=== PATIENT | female | born 1950 | race Caucasian/White ===

== ENCOUNTER 2018-01-19 12:37 | Emergency (ER) | payer MEDICARE ==
[~2018-01-19] VITALS: Ht 170.2 cm; Wt 63.5 kg
[~2018-01-19 12:37] MED LIST: ALBU90I INH; ALBU90OI INH; ASPI325 PO; ATOR10; ATOR40TA; ATOR40TA PO; CALCAVITDA; CALGLU500 PO; CEPH500 PO; CLIN150 PO; CLOP75 PO; CRUTCH3 USE; CYAN1000I; CYAN1000I IM; DIAZ5 PO; DIVA500EC; DIVA500EC PO; DIVA500ER; DULO60; EFFEXOR-XR; FLUSAL1005 INH; FURO40; FURO40 PO; GABA600 PO; GABAPENTIN; HORMONE CREAM; HYDACE5; IBUHYD; LEVFLO500 PO; LEVSOD50; LEVSOD50 PO; LORA.5; LORA1 PO; METH10; METH10 PO; METO10 PO; MULVITA; NABU500; NAPR250; ONDA8ODT MM; OXYACE5C; OXYC20L PO; OXYGEN USE; PANT40 PO; PRED20 PO; PRIM50; PRIM50 PO; PROM25; PROM25 PO; TIOT18 INH; VENL150ER PO
[2018-01-19 13:43] LABS: BASOPHILS ABSOLUTE AUTO 0.04 K/mm3 (0.00-0.23); BASOPHILS PERCENT AUTO 1 % (0-2); EOSINOPHILS ABSOLUTE AUTO 0.09 K/mm3 (0.00-0.68); EOSINOPHILS PERCENT AUTO 2 % (0-6); Hematocrit 40.3 % (33.0-51.0); Hemoglobin 13.2 g/dL (11.5-16.0); IMMATURE GRAN ABSOLUTE AUTO 0.01 K/mm3 (0.00-0.10); IMMATURE GRAN PERCENT AUTO 0 % (0-1); LYMPHOCYTES ABSOLUTE AUTO 2.43 K/mm3 (0.84-5.20); LYMPHOCYTES PERCENT AUTO 41 % (21-46); MONOCYTES ABSOLUTE AUTO 0.47 K/mm3 (0.16-1.47); MONOCYTES PERCENT AUTO 8 % (4-13); Mean Corpuscular HGB 29.9 pg (26.0-34.0); Mean Corpuscular HGB Conc 32.8 g/dL (31.5-36.5); Mean Corpuscular Volume 91 fL (80-100); Mean Platelet Volume 9.8 fL (9.1-12.4); NEUTROPHILS ABSOLUTE AUTO 2.96 K/mm3 (1.96-9.15); NEUTROPHILS PERCENT AUTO 49 % (41-73); Platelet Count 227 K/mm3 (150-400); RDW Coefficient Variation 12.8 % (11.7-14.2); RDW Standard Deviation 42.5 fL (35.1-46.3); Red Blood Cell Count 4.41 M/mm3 (3.80-5.20)
[2018-01-19 13:55] LABS: Alanine Aminotransfer (ALT/SGP 26 U/L (12-78); Albumin, Blood 3.3 g/dL (3.4-5.0); Albumin/Globulin Ratio 1.1 (0.8-1.8); Alk Phos 85 U/L (50-136); Anion Gap 7 mmol/L (6-16); Aspartate Aminotrans (AST/SGOT 25 U/L (12-37); Bilirubin, Total 0.3 mg/dL (0.1-1.0); Blood Urea Nitrogen 13 mg/dL (8-24); Bun/Creatinine Ratio 23.4 (12.0-20.0); CO2, Blood 28 mmol/L (21-32); Calcium, Blood 8.7 mg/dL (8.5-10.1); Chloride, Blood 104 mmol/L (98-108); Creatinine, Blood 0.56 mg/dL (0.40-1.00); Globulin, Blood 3.1 g/dL (2.2-4.0); Glomerular Filtration Rate >60 (60-); Glucose, Blood 110 mg/dL (70-99); Potassium, Blood 3.6 mmol/L (3.5-5.5); Sodium, Blood 139 mmol/L (136-145); Total Protein, Blood 6.4 g/dL (6.4-8.2)
== END 2018-01-19 14:32 | disposition home or self-care (01) ==
LOC: ER 12:37
PROVIDERS: Emergency Medicine
DX: S61.011A Laceration without foreign body of right thumb without damage to nail, initial encounter (principal); S10.93XA Contusion of unspecified part of neck, initial encounter; S00.93XA Contusion of unspecified part of head, initial encounter; G47.419 Narcolepsy without cataplexy; I10 Essential (primary) hypertension; F17.200 Nicotine dependence, unspecified, uncomplicated; Z88.2 Allergy status to sulfonamides; Z79.899 Other long term (current) drug therapy; Z79.82 Long term (current) use of aspirin; Z86.73 Personal history of transient ischemic attack (TIA), and cerebral infarction without residual deficits; Z79.01 Long term (current) use of anticoagulants; W01.0XXA Fall on same level from slipping, tripping and stumbling without subsequent striking against object, initial encounter
CPT/HCPCS: 12002; 70450; 72125; 80053; 85025; 99284

== ENCOUNTER → 2019-04-11 | Outpatient (CLI) | payer MEDICARE | END | disposition home or self-care (01) | LOC: LAB SHORT 19:20 → LAB 19:20 | DX: L03.116 Cellulitis of left lower limb (principal) | CPT/HCPCS: 87070; 87075; 87077; 87147; 87186; 87205 ==

== ENCOUNTER 2019-06-23 09:50 | Inpatient (IN) | payer MEDICARE ==
[~2019-06-23] VITALS: Ht 167.6 cm; Wt 71.8 kg
[~2019-06-23 09:50] MED LIST changes: -ASPI325 PO; +ASPI81CH PO; -FURO40 PO; +Keflex500 MG PO
[2019-06-23 10:16] LABS: BASOPHILS ABSOLUTE AUTO 0.03 K/mm3 (0.00-0.23); BASOPHILS PERCENT AUTO 0 % (0-2); EOSINOPHILS PERCENT AUTO 0 % (0-6); Hematocrit 43.2 % (33.0-51.0); Hemoglobin 13.8 g/dL (11.5-16.0); IMMATURE GRAN ABSOLUTE AUTO 0.03 K/mm3 (0.00-0.10); IMMATURE GRAN PERCENT AUTO 0 % (0-1); LYMPHOCYTES ABSOLUTE AUTO 2.68 K/mm3 (0.84-5.20); LYMPHOCYTES PERCENT AUTO 23 % (21-46); MONOCYTES ABSOLUTE AUTO 0.72 K/mm3 (0.16-1.47); MONOCYTES PERCENT AUTO 6 % (4-13); Mean Corpuscular HGB 29.2 pg (26.0-34.0); Mean Corpuscular HGB Conc 31.9 g/dL (31.5-36.5); Mean Corpuscular Volume 92 fL (80-100); NEUTROPHILS ABSOLUTE AUTO 8.04 K/mm3 (1.96-9.15); NEUTROPHILS PERCENT AUTO 70 % (41-73); Platelet Count 234 K/mm3 (150-400); RDW Coefficient Variation 13.2 % (11.7-14.2); RDW Standard Deviation 44.5 fL (35.1-46.3); Red Blood Cell Count 4.72 M/mm3 (3.80-5.20)
[2019-06-23 10:27] LABS: Alanine Aminotransfer (ALT/SGP 15 U/L (12-78); Albumin, Blood 3.2 g/dL (3.4-5.0); Albumin/Globulin Ratio 1.1 (0.8-1.8); Alk Phos 87 U/L (50-136); Anion Gap 9 mmol/L (6-16); Aspartate Aminotrans (AST/SGOT 22 U/L (12-37); Bilirubin, Total 0.5 mg/dL (0.1-1.0); Blood Urea Nitrogen 18 mg/dL (8-24); Bun/Creatinine Ratio 31.3 (12.0-20.0); CO2, Blood 26 mmol/L (21-32); Calcium, Blood 8.9 mg/dL (8.5-10.1); Chloride, Blood 107 mmol/L (98-108); Creatinine, Blood 0.58 mg/dL (0.40-1.00); Glomerular Filtration Rate >60 (60-); Glucose, Blood 115 mg/dL (70-99); Potassium, Blood 3.9 mmol/L (3.5-5.5); Sodium, Blood 142 mmol/L (136-145); Total Protein, Blood 6.2 g/dL (6.4-8.2)
[2019-06-23] MEDS ORDERED: VALS80 PO (12:19)
[2019-06-23] MEDS ORDERED: FURO20 PO (12:23)
[2019-06-23] MEDS ORDERED: HYDR1TAB94 PO (12:36)
--- NOTE | 2019-06-23 14:21 | NUR ---
RECEIEVED REPORT FROM BOBO DUFF RN @ [id number]. AWAITING PATIENT'S ARRIVAL TO ROOM 349.
[2019-06-23 14:37] LABS: Valproic Acid <3.0 ug/mL (50.0-100.0)
--- NOTE | 2019-06-23 16:04 | NUR ---
ADMISSION HISTORY COMPLETED WITH THE ASSISTANCE OF PATIENT'S BROTHER, WHO WAS NOT TOO SURE OF PATIENT'S FULL MEDICAL HISTORY. THE PATIENT KEPT FALLING TO SLEEP DURING QUESTIONS AND WAS NOT A GOOD HISTORIAN. REQUESTED MEDICATION LIST FROM [facility] TO BE ABLE TO COMPLETE MED REC; WAITING FOR REPLY. ASSESSED AND TOOK PICTURE OF SPIDER BITE TO LLE/FORTUNE; PATIENT NOTED TO HAVE EXTREME PAIN TO ANY TOUCHING OF THE LLE. PATIENT HAS UPPER TEETH BUT NO LOWER TEETH. PER BROTHER THE PATIENT AMBULATES AT HOME USING A WALKER OR CANE. THE PATIENT LIVES AT HOME WITH HER MOTHER IN WHOM SHE PROVIDES CARE FOR. MOTHER IS ELDERLY AND HAS DEMENTIA. VAGINAL BLEEDING NOTED ON ASSESSMESNT; PATIENT IS UNAWARE OF WHY OR HOW LONG SHE HAS BEEN BLEEDING. PATIENT IS ASLEEP IN HER ROOM AT THIS TIME. WILL CONTINUE TO MONITOR AND PROVIDE CARE NEEDED.
[2019-06-23 19:03] LABS: Hemoglobin 12.9 g/dL (11.5-16.0)
[2019-06-23] MEDS ORDERED: MODA200 PO (20:08)
[2019-06-24 05:24] LABS: BASOPHILS ABSOLUTE AUTO 0.02 K/mm3 (0.00-0.23); BASOPHILS PERCENT AUTO 0 % (0-2); EOSINOPHILS ABSOLUTE AUTO 0.03 K/mm3 (0.00-0.68); EOSINOPHILS PERCENT AUTO 0 % (0-6); Hematocrit 41.3 % (33.0-51.0); Hemoglobin 13.4 g/dL (11.5-16.0); IMMATURE GRAN ABSOLUTE AUTO 0.02 K/mm3 (0.00-0.10); IMMATURE GRAN PERCENT AUTO 0 % (0-1); LYMPHOCYTES ABSOLUTE AUTO 2.53 K/mm3 (0.84-5.20); LYMPHOCYTES PERCENT AUTO 28 % (21-46); MONOCYTES ABSOLUTE AUTO 0.53 K/mm3 (0.16-1.47); MONOCYTES PERCENT AUTO 6 % (4-13); Mean Corpuscular HGB 29.7 pg (26.0-34.0); Mean Corpuscular HGB Conc 32.4 g/dL (31.5-36.5); Mean Corpuscular Volume 92 fL (80-100); Mean Platelet Volume 10.7 fL (9.1-12.4); NEUTROPHILS ABSOLUTE AUTO 5.87 K/mm3 (1.96-9.15); NEUTROPHILS PERCENT AUTO 65 % (41-73); Platelet Count 221 K/mm3 (150-400); RDW Coefficient Variation 13.4 % (11.7-14.2); RDW Standard Deviation 45.4 fL (35.1-46.3); Red Blood Cell Count 4.51 M/mm3 (3.80-5.20)
[2019-06-24 05:35] LABS: International Normalized Ratio 0.92; Prothrombin Time Results 9.8 Sec (9.7-11.5)
[2019-06-24 05:47] LABS: Alanine Aminotransfer (ALT/SGP 16 U/L (12-78); Albumin, Blood 3.1 g/dL (3.4-5.0); Alk Phos 86 U/L (50-136); Anion Gap 9 mmol/L (6-16); Aspartate Aminotrans (AST/SGOT 22 U/L (12-37); Bilirubin, Total 0.4 mg/dL (0.1-1.0); Blood Urea Nitrogen 14 mg/dL (8-24); CO2, Blood 25 mmol/L (21-32); Calcium, Blood 8.6 mg/dL (8.5-10.1); Chloride, Blood 109 mmol/L (98-108); Creatinine, Blood 0.61 mg/dL (0.40-1.00); Globulin, Blood 3.1 g/dL (2.2-4.0); Glomerular Filtration Rate >60 (60-); Glucose, Blood 99 mg/dL (70-99); Potassium, Blood 3.9 mmol/L (3.5-5.5); Sodium, Blood 143 mmol/L (136-145); Total Protein, Blood 6.2 g/dL (6.4-8.2)
--- NOTE | 2019-06-24 06:49 | NUR ---
SHIFT SUMMARY PT VERY SLEEPY LETHARGIC. WILL ONLY AWAKEN FOR A FEW MINUTES AND MUMBLE HER ANSWER WHEN ASKED THEN GO BACK TO SLEEPING. SOME S/S OF PAIN WHEN TURNED AND ROLLING TO CHANGE HER. MEDICATED C TYLENOL FOR S/S OF PAIN IN L ANKLE. INCONT OF URINE C FOUL SMELLING URINE. SLEEPING AND SOMNOLENT T/O NIGHT. BED ALARM IN USE.
--- NOTE | 2019-06-24 10:33 | NUR ---
DURING ASSESSMENT OF PATIENT NURSE NOTICED MASS ON LEFT SIDE OF LABIA . 5-6 CM ROUND AND 1 CM HIGH. IT IS BEEFY, WITH BLUISH HUE AROUND SITE AND UNEVEN BORDERS. STATES ITS NOT PAINFUL AND SHE DOES NOT REMEMBER IT BEING THERE. LABIA IS SWOLLEN AROUND SITE. DOCTOR AWARE OF MASS.
--- NOTE | 2019-06-24 16:35 | NUR ---
PATIENT HAS SLEPT MOST OF THE SHIFT. SHE HAS HAD FAMILY IN. MEDICATIONS REVIEWED WITH FAMILY. OB CAME IN AND CHECKED GROWTH ON LABIA PER DOCTOR ORDER. IV ABX RAN. NO ACUTE CHANGES THIS SHIFT.
--- NOTE | 2019-06-25 06:04 | NUR ---
SHIFT SUMMARY: ALERT ONLY TO DIRECT STIMULI. HAS REMAINED LETHARGIC AND MINIMALLY INTERACTIVE. WILL WAKE UP ENOUGH TO ASSIST BUT NOT ENOUGH TO SPEAK. DID YELL OUT "HELP ME" ONCE WHEN HER LEGS SLID OFF THE BED IN THE NIGHT. BECAME TEARFUL AFTER THIS EVENT BUT REDIRECTED QUICKLY. TEMP WAS 100 UPON INITIAL CHECK TONIGHT AND CAME DOWN TO 97.9- ONLY INTERVENTIONS WERE REMOVING SOME BLANKETS AND TURNING ROOM TEMP DOWN. NO CLEAR COMPLAINTS TONIGHT. HAS SLEPT INTERMITTENTLY. ROLLS INDEPENDENTLY BACK AND FORTH IN BED AND ASSISTS WITH CARES BY POSITIONING SELF. MASS ON R LABIA PRODUCING VERY SCANT AMT OF SANG DRAINAGE. NO C/O PAIN WITH WIPING. INCONTINENT OF URINE, HEAVILY WETTING ATTENDS WITH EACH VOID. OCC NON-PRODUCTIVE COUGHING. SUSPECTED SPIDER BITE ON L POSTERIOR LE SCABBED WITHOUT ERYTHEMA. IS NOT MAKING NEEDS KONWN. BED LOW, ALARM ON, CALL BUTTON IN REACH.
--- NOTE | 2019-06-25 16:10 | NUR ---
SHIFT SUMMARY: PT HAS BEEN ALERT TO HERSELF THIS SHIFT SHE CAN TELL YOU HER NAME AND DATE OF AND SHE KNOWS SHE IS IN THE HOSPITAL. SHE DOES CONTINUE TO HAVE SIGNIFICANT FATIGUE. TELE WAS DCD. DR TAYLOR CAME TO BEDSIDE TO COMPLETE AND BIOPSY ON THE MASS ON HER RIGHT VULVA, THIS NURSE ASSISTED AND BROUGHT THE SPECIMEN TO THE LAB. PAIN MEDS WERE GIVEN ORDERD AND THEN THE PT WAS ABLE TO FALL ASLEEP. SHE HAS BEEN RESTLESS AT TIMES BUT IS ABLE TO FALL BACK ASLEEP. IV MEDS/FLUIDS HAVE INFUSED WITH NO ISSUES OBSERVED. PT IS RESTING IN BED WITH FREQUENT NURSE ROUNDING.
--- NOTE | 2019-06-26 05:38 | NUR ---
SHIFT SUMMARY: BP'S ELEVATED TONIGHT. AFEBRILE. ALERT AND MORE VERBAL TONIGHT COMPARED TO LAST. MAKING MORE ATTEMPTS TO ANSWER QUESTIONS AND COMMUNICATE NEEDS. DIFFICULT TO UNDERSTAND D/T STOMA OPENING OVER TRACH. REPORTS PAIN TO BIOPSY SITE ON R LABIA. OXYCODONE INITIALLY INEFFECTIVE, BUT PT STATES PAIN IMPROVED GREATLY AFTER A COUPLE HOURS. SLEPT THROUGH MUCH OF THE NIGHT. NO FURTHER C/O PAIN. DRANK 2 CHOCOLATE ENSURES TONIGHT. NEURO CHECKS WNL. CALL BUTTON IN REACH, BED LOW, BED ALARM ON.
--- NOTE | 2019-06-26 16:22 | NUR ---
SHIFT SUMMARY: PT HAS BEEN ALERT TO HERSELF AND SITUATION WELL HER FAMILY. SHE IS MUCH MORE AWAKE TODAY THAN YESTERDAY. SHE REMAINS VERY FATIGUED BUT IS AROUSABLE AND HAS BEEN AWAKE FOR MOMENTS DURING THE DAY. THE BIOPSY SITE ON HER VULVA REMAINS RED WITH A SCANT AMOUNT OF BLOOD, THE GAUZE HAS BEEN CHANGED MULTIPLE TIMES TODAY. HER BROTHER CAME TO VISIT FOR A WHILE THIS MORNING. SHE HAS BEEN INC AND NEEDS TOTAL CARE FOR ADLS. SHE IS RESTING IN BED WITH FREQUENT CHECKS.
[2019-06-27 04:26] LABS: BASOPHILS ABSOLUTE AUTO 0.03 K/mm3 (0.00-0.23); BASOPHILS PERCENT AUTO 0 % (0-2); EOSINOPHILS ABSOLUTE AUTO 0.16 K/mm3 (0.00-0.68); EOSINOPHILS PERCENT AUTO 2 % (0-6); Hematocrit 43.7 % (33.0-51.0); IMMATURE GRAN ABSOLUTE AUTO 0.02 K/mm3 (0.00-0.10); IMMATURE GRAN PERCENT AUTO 0 % (0-1); LYMPHOCYTES ABSOLUTE AUTO 2.36 K/mm3 (0.84-5.20); LYMPHOCYTES PERCENT AUTO 35 % (21-46); MONOCYTES PERCENT AUTO 9 % (4-13); Mean Corpuscular HGB 29.5 pg (26.0-34.0); Mean Corpuscular Volume 92 fL (80-100); Mean Platelet Volume 10.2 fL (9.1-12.4); NEUTROPHILS ABSOLUTE AUTO 3.55 K/mm3 (1.96-9.15); NEUTROPHILS PERCENT AUTO 53 % (41-73); Platelet Count 210 K/mm3 (150-400); RDW Coefficient Variation 12.9 % (11.7-14.2); RDW Standard Deviation 43.9 fL (35.1-46.3); Red Blood Cell Count 4.75 M/mm3 (3.80-5.20); White Blood Cell Count 6.72 K/mm3 (4.00-11.30)
[2019-06-27 04:39] LABS: Anion Gap 7 mmol/L (6-16); Blood Urea Nitrogen 19 mg/dL (8-24); Bun/Creatinine Ratio 34.3 (12.0-20.0); CO2, Blood 28 mmol/L (21-32); Calcium, Blood 8.9 mg/dL (8.5-10.1); Chloride, Blood 107 mmol/L (98-108); Creatinine, Blood 0.55 mg/dL (0.40-1.00); Glomerular Filtration Rate >60 (60-); Glucose, Blood 87 mg/dL (70-99); Potassium, Blood 3.7 mmol/L (3.5-5.5); Sodium, Blood 142 mmol/L (136-145)
--- NOTE | 2019-06-27 05:25 | NUR ---
SHIFT SUMMARY: VSS. BP 137/75 AFTER AMLODIPINE. MORE ALERT AND INTERACTIVE. SPEAKING MORE- CONFUSION IS MORE APPARENT TONIGHT. PT WAS CRYING AND WAS TALKING ON THE PHONE TO HER MOM- THE PHONE WAS NOT CONNECTED TO ANOTHER CALLER, MOTHER WAS NOT ON THE LINE, BUT PT BELIEVED SHE WAS. LATER PT WAS TALKING TO HER MOM HOLDING THE CALL BUTTON TO HER EAR- TEARFULLY SAYING "MOMMA, I MISS YOU" AND OTHER THINGS I WAS NOT ABLE TO UNDERSTAND. BECAME TEARFUL ABOUT HER BROTHER AT THE MENTION OF HIM. BECAME ANXIOUS AND SCARED WHEN PROGRESS OF SCABBED OVER SPIDER BITE ON CALF WAS MENTIONED, STATED "I DON'T LIKE SPIDERS" WHILE CRYING. TYLENOL ADMINISTERED WITH HS MEDS D/T PT STATING SHE IS HURTING, BUT WHEN ASKED FOR SPECIFICS SHE POINTED AT HER HEAD, AND THEN SAID "MY SKIN", AND THEN SAID "I DON'T KNOW". HAS SLEPT MOST OF THE NIGHT. WHEN I FOUND HER AWAKE AT ONE CHECK IN, SHE CONFIRMED SHE WAS COMFORTABLE. RESPS REG, NON-LABORED. BED LOW, CALL LIGHT IN REACH, BED ALARM ON.
--- NOTE | 2019-06-27 16:20 | NUR ---
SHIFT SUMMARY: PT CONTINUES TO BE VERY CONFUSED. SHE IS INTERMITTENTLY AWAKE BUT ONLY ALERT TO HERSLEF AND FAMILY. DR CHANG ORDERED AN MRI THIS MORNING AND THIS NURSE COMPLETED THE MRI SCREEN WITH THE PT AND HER BROTHER AND MOTHER. THE MRI WAS COMPLETED AND THE RESULTS WERE CALLED IN TO DR CHANG WHO IN TURN ORDERED AN ECHO WHICH WAS ALSO COMPLETED THIS AFTERNOON, THE RESULTS ARE STILL PENDING. PT JEWELRY WAS REMOVED FOR MRI, IT WAS LABELED AND WILL BE SENT TO SECURITY TO BE PUT IN THE SAFE DUE TO PT BEING CONFUSED, FAMILY WAS NOTIFIED. PT CONTINUES TO BE INC AND HAS YET TO HAVE A BM. PRUNE AND APPLE JUICE WERE GIVEN BUT NO RESULTS OF NOW. SHE DOES C/O PAIN TO HER BACK AND LEGS AND PAIN MEDS WERE GIVEN ORDERED. SHE IS RESTING IN BED NOW WITH FREQUENT NURSE ROUNDING.
--- NOTE | 2019-06-28 06:44 | NUR ---
06/28/19 0615 VITALS STABLE. SLEPT MOST OF NIGHT. DENIES ANY PAIN OR S/S THIS SHIFT. TURNED Q 2 HOURS. INCONTINENT OF URINE AND ATTENDS BRIEF CHANGED PRN. NO CHANGE IN NEURO. STATUS FROM START OF SHIFT.
[2019-06-28] MEDS ORDERED: AMLO10 PO (14:19)
[2019-06-28] MEDS ORDERED: ASPI81CH PO (14:19)
[2019-06-28] MEDS ORDERED: ATOR40TA PO (14:20)
[2019-06-28] MEDS ORDERED: DIVA500EC PO (14:21)
[2019-06-28] MEDS ORDERED: CIPR500 PO (14:21)
[2019-06-28] MEDS ORDERED: CLOP75 PO (14:21)
[2019-06-28] MEDS ORDERED: LEVSOD50 PO (14:23)
[2019-06-28] MEDS ORDERED: THIAMINE HCL PO (14:23)
[2019-06-28] MEDS ORDERED: [UNRECOGNIZED DRUG - CODE] PO (14:24)
[2019-06-28] MEDS ORDERED: Vitamin D2000 UNIT PO (14:24)
[2019-06-28] MEDS ORDERED: FOLI1 PO (14:24)
--- NOTE | 2019-06-28 14:41 | NUR ---
REPORT GIVEN TO JATINDER. CALLED PATIENTS MOTHER TO INFORM OF DISCHARGE TO [facility].
--- NOTE | 2019-06-28 15:16 | NUR ---
PATIENT DISCHARGING TO [facility]. HARD SCRIPT FOR MO IN CHART. PATIENT WORKED WITH OT TO GET READY FOR TRANSPORT.
== END 2019-06-28 15:36 | DRG 689 ==
LOC: ER 09:50 → MEDS 14:14
PROVIDERS: Emergency Medicine; Nurse Practitioner Acute Care; ADMIT Internal Medicine
PROC: 3E02340 Introduction of Influenza Vaccine into Muscle, Percutaneous Approach (ICD-10-PCS; 2019-06-23)
PROC: 0HBAXZX Excision of Inguinal Skin, External Approach, Diagnostic (ICD-10-PCS; principal; 2019-06-25)
DX: N39.0 Urinary tract infection, site not specified (principal); I63.9 Cerebral infarction, unspecified; G92 Toxic encephalopathy; G81.91 Hemiplegia, unspecified affecting right dominant side; R47.81 Slurred speech; I10 Essential (primary) hypertension; S80.862A Insect bite (nonvenomous), left lower leg, initial encounter; G47.33 Obstructive sleep apnea (adult) (pediatric); Z93.0 Tracheostomy status; J44.9 Chronic obstructive pulmonary disease, unspecified; Z23 Encounter for immunization; E11.51 Type 2 diabetes mellitus with diabetic peripheral angiopathy without gangrene; M79.7 Fibromyalgia; K21.9 Gastro-esophageal reflux disease without esophagitis; B96.20 Unspecified Escherichia coli [E. coli] as the cause of diseases classified elsewhere; G40.909 Epilepsy, unspecified, not intractable, without status epilepticus; N90.89 Other specified noninflammatory disorders of vulva and perineum
CPT/HCPCS: 36415; 36600; 70450; 70551; 80048; 80053; 80164; 81001; 82306; 82607; 82746; 82803; 83605; 83735; 84443; 84484; 85014; 85018; 85025; 85610; 87077; 87086; 87186; 88305; 90686; 92526; 92610; 93005; 93010; 93308; 94640; 94760; 96361; 96365; 96372-59; 96374; 96375; 97110; 97163; 97167; 97530; 97535; 99283-25; 99285-25; A9270; A9270-GY; G0008; G0480; J0744; J1200; J1650; J2930; J3411; J3420; J7030; J7050; J7120

== ENCOUNTER 2019-07-06 12:29 | Emergency (ER) | payer MEDICARE, OTHER ==
[~2019-07-06] VITALS: Ht 167.6 cm; Wt 72.6 kg
[~2019-07-06 12:29] MED LIST changes: +AMLO10 PO; +CIPR500 PO; +FOLI1 PO; +FURO20 PO; +HYDR1TAB94 PO; +MODA200 PO; +THIAMINE HCL PO; +VALS80 PO; +Vitamin D2000 UNIT PO; +[UNRECOGNIZED DRUG - CODE] PO
[2019-07-06] MEDS ORDERED: ACET325 PO (13:09)
[2019-07-06] MEDS ORDERED: LOSARTAN POTASS50 MG PO ×2 (13:29→13:33)
[2019-07-06] MEDS ORDERED: ALPR.25 PO (13:40)
[2019-07-06 14:47] LABS: BASOPHILS ABSOLUTE AUTO 0.04 K/mm3 (0.00-0.23); BASOPHILS PERCENT AUTO 0 % (0-2); EOSINOPHILS ABSOLUTE AUTO 0.06 K/mm3 (0.00-0.68); EOSINOPHILS PERCENT AUTO 1 % (0-6); Hematocrit 46.9 % (33.0-51.0); Hemoglobin 14.7 g/dL (11.5-16.0); IMMATURE GRAN ABSOLUTE AUTO 0.03 K/mm3 (0.00-0.10); IMMATURE GRAN PERCENT AUTO 0 % (0-1); LYMPHOCYTES ABSOLUTE AUTO 2.22 K/mm3 (0.84-5.20); LYMPHOCYTES PERCENT AUTO 24 % (21-46); MONOCYTES ABSOLUTE AUTO 0.67 K/mm3 (0.16-1.47); MONOCYTES PERCENT AUTO 7 % (4-13); Mean Corpuscular HGB 29.3 pg (26.0-34.0); Mean Corpuscular HGB Conc 31.3 g/dL (31.5-36.5); Mean Corpuscular Volume 93 fL (80-100); Mean Platelet Volume 10.9 fL (9.1-12.4); NEUTROPHILS ABSOLUTE AUTO 6.22 K/mm3 (1.96-9.15); NEUTROPHILS PERCENT AUTO 67 % (41-73); Platelet Count 209 K/mm3 (150-400); RDW Coefficient Variation 13.2 % (11.7-14.2); RDW Standard Deviation 45.1 fL (35.1-46.3); Red Blood Cell Count 5.02 M/mm3 (3.80-5.20); White Blood Cell Count 9.24 K/mm3 (4.00-11.30)
[2019-07-06 15:04] LABS: Alanine Aminotransfer (ALT/SGP 19 U/L (12-78); Albumin, Blood 3.2 g/dL (3.4-5.0); Albumin/Globulin Ratio 0.9 (0.8-1.8); Alk Phos 88 U/L (50-136); Anion Gap 6 mmol/L (6-16); Aspartate Aminotrans (AST/SGOT 24 U/L (12-37); Bilirubin, Total 0.2 mg/dL (0.1-1.0); Blood Urea Nitrogen 18 mg/dL (8-24); Bun/Creatinine Ratio 33.5 (12.0-20.0); CO2, Blood 31 mmol/L (21-32); Calcium, Blood 9.1 mg/dL (8.5-10.1); Chloride, Blood 103 mmol/L (98-108); Creatinine, Blood 0.54 mg/dL (0.40-1.00); Ethanol (Alcohol), Blood, Med <3 mg/dL; Globulin, Blood 3.7 g/dL (2.2-4.0); Glomerular Filtration Rate >60 (60-); Glucose, Blood 87 mg/dL (70-99); Potassium, Blood 4.2 mmol/L (3.5-5.5); Sodium, Blood 140 mmol/L (136-145); Total Protein, Blood 6.9 g/dL (6.4-8.2); Troponin I <0.015 ng/mL (0.000-0.040)
[2019-07-06 15:16] LABS: Source, Urine Voided
[2019-07-06 15:18] LABS: Bilirubin, Urine Neg (Neg); Blood, Urine 4+ (Neg); Glucose Qualitative, Urine Neg (Neg); Ketones, Urine 1+ (Neg); Leukocyte Esterase, Urine 1+ (Neg); Nitrite, Urine Neg (Neg); Protein, Urine Neg (Neg); Specific Gravity, Urine 1.015 (1.003-1.022); Urobilinogen, Urine NORM (Normal)
[2019-07-06 15:29] LABS: U Amphetamine Screen Not Detected; U Barbituate Screen Not Detected; U Benzodiazapine Screen Not Detected; U Buprenorphine Screen Not Detected; U Cannabinoids Screen Not Detected; U Cocaine Screen Not Detected; U Methadone Screen Not Detected; U Methamphetamine Screen Not Detected; U Opiates Screen Not Detected; U Oxycodone Screen Not Detected; U Phencyclidine Screen Not Detected; U Propoxyphene Screen Not Detected
[2019-07-06 15:30] LABS: Appearance, Urine Hazy (Clear); Color, Urine Pale Yellow (P-Yellow)
[2019-07-06 15:31] LABS: Amorphous Light (0-Heavy); Bacteria Few /hpf; Red Blood Cells, Urine 0-2 /hpf (0-2); Squamous Epithelial Cells Few /hpf (Few); Yeast/Fungi Urine Few /hpf
[2019-07-06 16:51] LABS: Valproic Acid 66.6 ug/mL (50.0-100.0)
== END 2019-07-06 18:02 | disposition home or self-care (01) ==
LOC: ER 12:29
PROVIDERS: Emergency Medicine
DX: R41.82 Altered mental status, unspecified (principal); I69.351 Hemiplegia and hemiparesis following cerebral infarction affecting right dominant side; I10 Essential (primary) hypertension; G47.30 Sleep apnea, unspecified; Z88.2 Allergy status to sulfonamides; Z88.1 Allergy status to other antibiotic agents; Z79.899 Other long term (current) drug therapy; Z79.82 Long term (current) use of aspirin; Z87.891 Personal history of nicotine dependence
CPT/HCPCS: 70450; 71045; 80053; 80164; 81001; 84443; 84484; 85025; 87086; 93005; 93010; 96374; 99285-25; G0480; J2060

== ENCOUNTER 2019-08-31 22:28 | Inpatient (IN) | payer MEDICARE ==
[~2019-08-31] VITALS: Ht 170.2 cm; Wt 64.5 kg
[~2019-08-31 22:28] MED LIST changes: +ACET325 PO; +ALPR.25 PO; +LOSARTAN POTASS50 MG PO
[2019-08-31 23:07] LABS: BASOPHILS ABSOLUTE AUTO 0.03 K/mm3 (0.00-0.23); BASOPHILS PERCENT AUTO 1 % (0-2); EOSINOPHILS ABSOLUTE AUTO 0.07 K/mm3 (0.00-0.68); EOSINOPHILS PERCENT AUTO 1 % (0-6); Hematocrit 37.5 % (33.0-51.0); Hemoglobin 11.9 g/dL (11.5-16.0); IMMATURE GRAN ABSOLUTE AUTO 0.01 K/mm3 (0.00-0.10); IMMATURE GRAN PERCENT AUTO 0 % (0-1); LYMPHOCYTES ABSOLUTE AUTO 2.23 K/mm3 (0.84-5.20); LYMPHOCYTES PERCENT AUTO 36 % (21-46); MONOCYTES ABSOLUTE AUTO 0.47 K/mm3 (0.16-1.47); MONOCYTES PERCENT AUTO 8 % (4-13); Mean Corpuscular HGB 30.1 pg (26.0-34.0); Mean Corpuscular HGB Conc 31.7 g/dL (31.5-36.5); Mean Corpuscular Volume 95 fL (80-100); Mean Platelet Volume 10.8 fL (9.1-12.4); NEUTROPHILS ABSOLUTE AUTO 3.44 K/mm3 (1.96-9.15); NEUTROPHILS PERCENT AUTO 55 % (41-73); Platelet Count 105 K/mm3 (150-400); RDW Coefficient Variation 14.4 % (11.7-14.2); RDW Standard Deviation 50.3 fL (35.1-46.3); Red Blood Cell Count 3.95 M/mm3 (3.80-5.20); White Blood Cell Count 6.25 K/mm3 (4.00-11.30)
[2019-08-31 23:30] LABS: Alanine Aminotransfer (ALT/SGP 35 U/L (12-78); Albumin, Blood 2.7 g/dL (3.4-5.0); Alk Phos 75 U/L (50-136); Anion Gap 4 mmol/L (6-16); Aspartate Aminotrans (AST/SGOT 22 U/L (12-37); Bilirubin, Total 0.2 mg/dL (0.1-1.0); Blood Urea Nitrogen 13 mg/dL (8-24); Bun/Creatinine Ratio 23.2 (12.0-20.0); CO2, Blood 31 mmol/L (21-32); Calcium, Blood 8.2 mg/dL (8.5-10.1); Chloride, Blood 104 mmol/L (98-108); Creatinine, Blood 0.56 mg/dL (0.40-1.00); Globulin, Blood 2.8 g/dL (2.2-4.0); Glomerular Filtration Rate >60 (60-); Glucose, Blood 62 mg/dL (70-99); Potassium, Blood 4.5 mmol/L (3.5-5.5); Sodium, Blood 139 mmol/L (136-145); Total Protein, Blood 5.5 g/dL (6.4-8.2); Troponin I <0.015 ng/mL (0.000-0.040)
--- NOTE | 2019-09-01 01:53 | NUR ---
0059: PT ARRIVED TO FLOOR C/O CP RADIATING DOWN LEFT ARM. PER ER NURSE PARIS SHE HAD BEEN GIVEN 1 TAB OF NITRO IN ER. AND A 1L BOLUS WAS RUNNING FOR LOW BPS IN ER. RAN BOLUS THRU PUMP - BP 111/52 STARTED IVF AFTER BOLUS COMPLETED NS AT 100ML/HR. HELD ANY FURTHER NITRO DUE TO LOW BPS. PLACED TELEMETRY - PT IS SR @60 BPM PER PCU TECH. PT HAD LOW SUGAR ON ADMIT AND WAS GIVEN SOME OJ. RECHECK SHOWED 85. 0140: REPORT WAS CALLED TO ICU NURSE RAMAN 0159: GAVE MAALOX PER EMAR. BUCK IRWIN SAW THE PATIENT. PT LEFT THE MEDICAL FLOOR
--- NOTE | 2019-09-01 02:38 | NUR ---
ASSUMED PT CARE AT 0205 PT ARRIVED ON UNIT FROM MEDICAL FLOOR D/T LOW BLOOD PRESSURES THAT WERE NOT RESPONDING TO FLUID BOLUSES, WELL ACTIVE CHEST PAIN. PT NOTED TO BE ALERT AND ORIENTED TO SELF; VERY FORGETFUL. ABLE TO CARRY ON SENTENCES WITH LOGICAL THINKING; HOWEVER, PT IS A VERY POOR HISTORIAN. THEREFORE, UNABLE TO OBTAIN AN ADEQUATE HX. CALLED [facility] TO ASK FOR MEDICAL RECORDS TO BE FAXED TO THE ICU. VS STABLE UPON ADMIT. SBP 130'S. HR 60'S. NSR WITH SLIGHT ST ELEVATION; HOWEVER, UNCHANGED FROM EKG THAT WAS LAST OBTAINED AROUND 2330. PT ACTIVELY C/O CHEST PAIN. STATES IT FEELS LIKE HEAVY PRESSURE IF SOMEONE WAS SITTING ON HER CHEST. TROPONINS ARE NOT ELEVATED AT THIS TIME. PT RATES THE PAIN 10/10. HOWEVER, SHORTLY AFTER EXITING ROOM PT FELL ASLEEP WITH NO ISSUES. SHE DID CLAIM THAT SHE HAS HAD THIS PAIN BEFORE; HOWEVER, UNABLE TO TELL ME WHAT WAS EFFECTIVE FOR HER PAIN IN THE PAST. NO FAMILY AT BEDSIDE AT THIS TIME. PT UNSURE IF FAMILY WAS CONTACTED PRIOR TO HER TRANSFER TO THE HOSPITAL. WILL PASS OFF TO DAY RN TO CONTACT BROTHER WHO IS LISTED ON FACESHEET. PT STATES SHE WAS AT [facility] FOR TWO WEEKS RECEIVING THERAPY. PRIOR TO HER LAST HOSPITAL ADMISSION SHE WAS WALKING AROUND AND INDPENDENT WITH ALL ADL'S. STATES SHE LIVES WITH HER MOM AND DOESN'T HAVE OR NEED ANY CAREGIVERS. PT HAS AN ESTABLISHED TRACH THAT IS COVERED WITH A FOAM BANDAGE; HOWEVER, PT REMAINS ON RA WITH OXYGEN SATURATIONS IN THE 90'S. CALL LIGHT WITHIN REACH AND PT IS ABLE TO MAKE HER BASIC NEEDS KNOWN. WILL CONTINUE TO MONITOR.
[2019-09-01] MEDS ORDERED: DULO30 PO (03:28)
[2019-09-01 08:43] LABS: Albumin, Blood 2.1 g/dL (3.4-5.0); Anion Gap 3 mmol/L (6-16); Blood Urea Nitrogen 11 mg/dL (8-24); Bun/Creatinine Ratio 20.8 (12.0-20.0); CHOL/HDL RATIO 1.9; CO2, Blood 30 mmol/L (21-32); Calcium, Blood 7.8 mg/dL (8.5-10.1); Chloride, Blood 107 mmol/L (98-108); Cholesterol 98 mg/dL (50-200); Creatinine, Blood 0.53 mg/dL (0.40-1.00); Glomerular Filtration Rate >60 (60-); Glucose, Blood 72 mg/dL (70-99); HDL Cholesterol 51 mg/dL (>39); LDL/HDL RATIO 0.8; Low Density Lipoprotein Chol 38 mg/dL (0-110); Phosphorus, Blood 4.2 mg/dL (2.5-4.9); Potassium, Blood 4.1 mmol/L (3.5-5.5); Sodium, Blood 140 mmol/L (136-145); Triglycerides 43 mg/dL (30-160); Troponin I <0.015 ng/mL (0.000-0.040); Very Low Density Lipoprot Chol 8 mg/dL (6-32)
--- NOTE | 2019-09-01 11:53 | NUR ---
REASSESSMENT: PT HAS BEEN RESTING IN BED THROUGHOUT THE MORNING. SHE REFUSED PHYSICAL THERAPY BUT WORKED WITH OCCUPATIONAL THERAPY LATER IN THE MORNING. SHE GOT UP TO THE COMMODE AND HAD A BM, OTHERWISE SHE JUST WANTS TO SLEEP. PT DOES HAVE PERIODS OF APNEA WHILE SHE SLEEPS BUT MAINTAINS SPO2 GREATER THAN 92%. LUNGS ARE CLEAR, DIM. SB IN THE 50S, SBP IN THE 90S SO CARDIAC MEDS HELD THIS AM PER PARAMETERS. PT TOHAVE FIRST PART OF HER STRESS TEST EARLY AFTERNOON. PT AND HER BROTHER INFORMED OF THIS. CONTINUING TO MONITOR.
--- NOTE | 2019-09-01 16:39 | NUR ---
SHIFT SUMMARY: PT HAS CONTINUED TO SLEEP THROUGHOUT THE AFTERNOON. SHE WAKES WHEN SPOKEN TOO, BUT QUICKLY FALLS BACK ASLEEP. PT'S BROTHER AND MOTHER WERE AT THE BEDSIDE EARLIER AND STATED THEY EXPECTED HER TO SLEEP MOST OF THE DAY TODAY BECAUSE SHE WAS UP VERY LATE LAST NIGHT. PT REMAINS ORIENTED TO PERSON AND SURROUNDINGS. LUNGS ARE CLEAR, SPO2 GREATER THAN 92% ON RA. SB IN THE 50S AND SBP STABLE IN THE 90S AND LOW 100S. PT HAD THE FIRST PART OF HER STRESS TEST THIS AFTERNOON AND TOLERATED WELL. AWAITING CONSULT FROM DR. TAYLOR FOR LABIAL GROWTH.
--- NOTE | 2019-09-01 17:52 | NUR ---
TRANSFER: PT TRANSFERRED TO U 1. REPORT GIVEN TO NADER BLAKE. ALL BELONGIGNS TRANSFERRED WITH PT. PT TOLERATED TRANSFER WELL.
--- NOTE | 2019-09-01 18:00 | NUR ---
ASSUMED CARE: PT TRANSFERRED FROM ICU. ESCORTED BY SALES PLANNING COORDINATOR AND BUCK SWAMPER. PT HAS FLAT AFFECT, LEFT SIDED DROOP AND WEAKNESS NOTED. SPONGE TAPED TO TRACHEOSTOMY SITE. WORKING ON EATING DINNER. DR TAYLOR AT BEDSIDE AT THIS TIME TO EVALUATE SITE.
--- NOTE | 2019-09-01 18:57 | NUR ---
Inital spiritual care note: Per admit trigger, I was tasked to meet with Dayanara to discuss changes to her AD. She was clearly too confused for this conversation at time of visit. She did want me to pray for her, and I happily complied. Then, she fell to sleep. Her bother and mom arrived. Mom appears quite frail and brother, Von explains that mom has recently had a stroke. He is clearly overwhelmed and appeared to benefit from gentle application counselor. He is Dayanara's MPOA and he states that he understands "she does not want to be kept alive on machines." She does want all medical intervention "until there's no hope." I carefully went over an advanced directive, explicitly reviewing the questions with regard to end-of-life with little hope of meaningful recovery. Von states that his sister wants all interventions "for awhile." For this reason, we agreed there was no reeason to alter her current AD. Both mom and Von responded well to emotional affirmation, encouragement, and prayer. They expect Dayanara to return to baseline. Encouraged self-care while Dayanara hospitalized. Key Bed Installer services will remain available.
--- NOTE | 2019-09-01 22:35 | NUR ---
ASSUMED CARE APPROXIMATELY 1900; PT ALERT; CRYING; APPEARS OVERWHELMED BY DAYS EVENTS; DR. TAYLOR WAS AT BEDSIDE START OF SHIFT; NEW ORDER GIVEN FOR CASTOR OIL FOR BRIEF CHANGE W/ PAD FOR COMFORT TO LABIA; PT ON RA W/ O2 SATS >93; PT STATED SHE COULD NOT REMEMBER HER MEDICATIONS; MEDICATIONS DISCUSSED W/ HER DURING ADMINISTRATION AND EDUCATION PROVIDED; VSS; CALL LIGHT IN REACH; BED IN LOWEST POSITION
[2019-09-02 04:08] LABS: Albumin, Blood 2.3 g/dL (3.4-5.0); Anion Gap 4 mmol/L (6-16); Blood Urea Nitrogen 12 mg/dL (8-24); Bun/Creatinine Ratio 19.9 (12.0-20.0); CO2, Blood 31 mmol/L (21-32); Calcium, Blood 8.1 mg/dL (8.5-10.1); Chloride, Blood 107 mmol/L (98-108); Glomerular Filtration Rate >60 (60-); Glucose, Blood 60 mg/dL (70-99); Phosphorus, Blood 4.1 mg/dL (2.5-4.9); Potassium, Blood 4.1 mmol/L (3.5-5.5); Sodium, Blood 142 mmol/L (136-145)
--- NOTE | 2019-09-02 07:25 | NUR ---
SHIFT SUMMARY PT ALERT; FLAT AFFECT; TEARFUL AT TIMES; NPO AT MIDNIGHT FOR AM PROCEDURE; VSS; O2 SATS >93 ON RA; BRIEF CHANGE AND REPOSITIONING PERFOMED W/ AID Q2 HRS; PT INCONTINENT; LARGE VOIDED AMOUNTS; ATTENDS IN PLACE; CGB STABLE; PT DENIES NEEDS AT THIS TIME; CALL LIGHT IN REACH; BED IN LOWEST POSITION; REPORT GIVEN TO DAY SHIFT RN.
--- NOTE | 2019-09-02 07:25 | NUR ---
ASSUMED CARE: PT RESTING QUIETLY IN BED AT THIS TIME. NO ACUTE DISTRESS OR NEEDS NOTED.
--- NOTE | 2019-09-02 09:26 | NUR ---
OT WORKED WITH PATIENT. OT STATES PT HAS MORE WEAKNESS ON RIGHT SIDE THAN YESTERDAY AND PT STATES NEW NUMBNESS AND TINGLING TO RIGHT HAND AND RIGHT FOOT. CALL TO DR ALLEN. AWAITING CALL BACK
--- NOTE | 2019-09-02 10:31 | NUR ---
BRUNILDA FROM PALLIATIVE CARE SPOKE WITH PT'S BROTHER ABOUT PLAN AND CARE WISHES. DR ALLEN MADE AWARE THAT FAMILY WANTS TO CONTINUE PRIOR PLAN OF GETTING TREATMENT AT CANCER CENTER.
--- NOTE | 2019-09-02 13:55 | NUR ---
Spiritual care visit conducted. Upon receiving a spiritual care referral, I visit patient. Patient is lying in bed and alert. Patient struggles to talk but is able to say that she is a Bahai and would appreciate prayer. I gladly provide prayer. Patient weeps through the prayer and repeatedly thanks me. Patient motions that she can't attempt to talk any more. I thank patient for allowing the spiritual care visit. I will continue to remain available to patient and family.
--- NOTE | 2019-09-02 16:02 | NUR ---
Clinical Visit: Pt is tearful at this time. She reports that she was given bad news today and would like me to call her brother. She says to please let her brother update her mother. She states, "she is going to be scared." Spoke to pt's brother, Von, on the phone. Updated on situation. He reports that pt has an appointment at the cancer center later this month. He would like all medical treatment to continue, and see what the cancer doc says about what kind of treatment is available for her. He reports that the oncology doctor in [place] made the referral, and has suggested radiation therapy. Von is very stressed. He is now taking care of his mother and his sister. He is taking them to all of their appointments. Allowed Von to express his worry and exhaustion over managing both of their care. He is able to come into the hospital tonight or tomorrow to discuss futher. No other concerns from him at this time. He states that his 90 year old mother has dementia. He limits the information he tells her because she gets very upset and then forgets what he told her later. Will remain available.
--- NOTE | 2019-09-02 21:23 | NUR ---
CARE ASSUMPTION PT A&O TO SELF, SURROUNDINGS, AND MONTH. PT STATING YEAR TO BE 1970. PT REPORTS BEING IN THE HOSPITAL D/T STROKE. PT REPORTING L SIDE WEAKER THAN R. HAND SAP BUSINESS OBJECTS DEVELOPER EQUAL. PT DENIES ABILITY TO SMILE. SLIGHT L FACIAL DROOP APPEARANCE AT MOUTH. PT INCONTINENT, WEARING ATTENDS. BLEEDING NOTED FROM AREA OF LABIA GROWTH. PT TEARFUL STATING DOCTOR TOLD HER "IT MIGHT BE CANCER." PT STATING SHE DOES WANT TREATMENT. VSS. MONITOR SHOWS SB-SR, HR 50's-60's. SPO2 > 92% ON RA. WILL CONTINUE TO MONITOR AND PROVIDE CARE.
[2019-09-03 05:04] LABS: Albumin, Blood 2.7 g/dL (3.4-5.0); Anion Gap 4 mmol/L (6-16); Blood Urea Nitrogen 10 mg/dL (8-24); Bun/Creatinine Ratio 20.8 (12.0-20.0); CO2, Blood 31 mmol/L (21-32); Calcium, Blood 8.8 mg/dL (8.5-10.1); Chloride, Blood 105 mmol/L (98-108); Creatinine, Blood 0.48 mg/dL (0.40-1.00); Glomerular Filtration Rate >60 (60-); Glucose, Blood 84 mg/dL (70-99); Phosphorus, Blood 3.7 mg/dL (2.5-4.9); Sodium, Blood 140 mmol/L (136-145)
--- NOTE | 2019-09-03 07:00 | NUR ---
SHIFT SUMMARY PT A&O X2. VSS. MONITOR SHOWS SB-SR, HR 50's-60's. SPO2 > 92% ON RA. PT CALM AND COOPERATIVE W/ EPISODES OF TEARFULNESS W/ PT STATING "I'M AFRAID OF DYING. I DON'T WANT TO . I'M WORRIED ABOUT MY MOTHER." PT CONTINUES TO HAVE BLEEDING FROM LABIA LESION. PRN KLEBER CARE & ATTENDS CHANGES PROVIDED. CELESTE OIL APPLIED TO KLEBER PADS T/O SHIFT. PT REPORTING PAIN IN UPPER CHEST UPON CARE ASSUMPTION W/ RESOLUTION W/ REST AND NO FURTHER C/O PAIN. REPORT GIVEN TO DAY SHIFT RN.
--- NOTE | 2019-09-03 18:52 | NUR ---
SHIFT SUMMARY PT STARTED OUT LETHARGIC THIS MORNING AND REQUIRED A LOT OF STIMULATION TO GET PT FULLY AWAKE. VSS, TELEMETRY SHOWED PT SINUS EVER 45'S-50'S TODAY. PT ONLY REPORTS PAIN WITH MOVEMENT/KLEBER CARE RELATED TO LABIAL LESION. APPLIED CASTOR OIL PRN AFTER KLEBER CARE. CHANGED PT'S STATUS THIS AFTERNOON TO MEDICAL.
--- NOTE | 2019-09-03 22:19 | NUR ---
ASSUMED CARE PATIENT AWAKE AND ALERT X 3 LYING IN BED. TRACE FACIAL DROOP TO LEFT EYE AND MOUTH, CONTINUOUS PROCESS ROTARY DRUM TANNER EQUAL. HESITATION AND TENSION W/ MOVEMENT AND REPOSITIONING ALL EXT'S. PT C/O CHRONIC PAIN TO BACK AND NECK AT 8/10. PT IS PARTIALLY INCONTINENT OF STOOL, WEARING ATTENDS W/ EXTRA PAD. TRACH STOMA COVERED WITH GAUZE DRESSING, WILL CHANGE THIS SHIFT. LABIAL GROWTH NOTED WHEN PERFORMING KLEBER-CARE, IS TENDER TO TOUCH BUT NOT BLEEDING. VSS. SINUS RHYTHM AT 62 PER MONITOR, O2 93% ON RA. WILL CONTINUE TO MONITOR AND PROVIDE CARE, CALL LIGHT IN REACH
--- NOTE | 2019-09-04 00:11 | NUR ---
CBG & PAIN PT CBG 67, ASYMPTOMATIC, PROVIDED W/ GLASS OF ORANGE JUICE & CUP OF YOGURT PER PT REQUEST. PT ALSO TEARFUL, REPORTING 8/10 PAIN AT SITE OF LABIAL LESION. PT MEDICATED W/ PRN NORCO PER EMAR/PT REQUEST. PRN KLEBER CARE AND ATTENDS CHANGE PROVIDED. CASTOR OIL APPLIED TO SITE.
--- NOTE | 2019-09-04 02:42 | NUR ---
MEDICAL FLOOR TRANSFER CARE ASSUMED OF PT AT THIS TIME. PT IN ROOM WITH BELONGINGS IN PLACE. SHE IS TERAFUL AND NOT SURE WHY SHE WAS MOVED TO MEDICAL FLOOR FROM PCU. PT APPEARS CONFUSED. PT REORIENTED TO HER SURROUNDINGS AND OFFERED SUPPORT. SHE DECLINES NEEDS AT THIS TIME. STABLE, WITH NO ACUTE CHANGES. WILL CONTINUE TO MONITOR.
--- NOTE | 2019-09-04 18:33 | NUR ---
Shift Summary A/Ox2 to self, hospital, and family. Pt has a withdrawn demeanor and is tearful at times when Aunt is at bedside d/t situation. Pt did not have much appetite and was mostly sleepy up until this afternoon. Medicated for 8/10 labia pain per EMAR with good results of 2/10. Apparently pt has poor vision and wears glasses per Aunt; family was instructed to retrieve glasses so patient can use while in the hospital. Pt was Sinus Dwain 40-50's this morning. Remains afebrile. Bed alarm on for safety. Pt continues to have scant bright red bleeding from labial lesion. No other concerns at this time. Bed alarm on for safety
--- NOTE | 2019-09-05 04:48 | NUR ---
PT RESTING AT INTERVALS THIS SHIFT DUE TO INCONTINENCE AND BEING CHANGED. NOTED SOME BLEEDING OF GENITAL AREA. CASTOR OIL APPLIED PER MD ORDERS - SEE MAR FOR DETAILS. SEEMED LESS ANXIOUS THIS SHIFT THAN NOTED 24 HRS PREVIOUS. CALL LIGHT IN REACH.
--- NOTE | 2019-09-05 17:17 | NUR ---
SHIFT SUMMARY. A&OX2, PT WITH MEMORY DEFICITS AND DIFFICULTY WITH DATE. PT DENIES SOB. OPEN THROAT STOMA ASSESSED BY THIS RN AND TYE, RT, MCFP STOMA WNL, CLEANSED. PT REQUESTS STOMA BE COVERED WITH GAUZE, THIS IS WHAT SHE DOES AT HOME. PT DENIES N/V, FAIR PO INTAKE. WHEN WORKING WITH PHYSICAL THERAPY, PT STANDING AT BEDSIDE, BRIGHT RED BLOOD BEGAN TO DRIP FROM PT'S BRIEF. PT ASSISTED BACK TO BED. BLEEDING FROM LABIAL LESION CONTROLLED, LINEN AND BREIF CHANGED. PT VERY PAINFUL, DR. ALLEN NOTIFIED AND RECIEVED ONE TIME ORDER FOR FENTANYL 25MCG IV. PAIN RESOLVED, PT SLEEPING COMFORTABLY THEREAFTER. NO NEW CHANGES OR CONCERNS.
--- NOTE | 2019-09-05 19:25 | NUR ---
Patient gives this exceptional student education aide permission to participate in her care on 09/06/2019.
--- NOTE | 2019-09-05 19:40 | NUR ---
DEVENDRA IS LAYING IN BED, FOOD IN FRONT OF HER. SHE IS DROWSY AND TENDS TO FALL RIGHT BACK TO SLEEP WHEN TALKING TO HER. SHE DOES OPEN HER EYES AND RESPONDS WHEN TOUCHED OR TALKED TO. RESP ARE SHALLOW WHEN SHE IS DOZING OFF. ENCOURAGED HER TO DEEP BREATH. LUNG SOUNDS DIMINISHED. TELEMETRY ON RUNNING IN SINUS. 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 THERE IS NOTED BLOOD CLOT FORMING IN THAT AREA, AREA TENDER TO TOUCH. ENCOURAGED HER TO FINISH EATING. POSITIONED UP IN BED. CALL LIGHT IN REACH.
--- NOTE | 2019-09-06 05:21 | NUR ---
SHIFT SUMMARY: DEVENDRA VS HAVE REMAINED STABLE. PAIN HAS BEEN AT TOLERABLE LEVEL. STATES ONLY HURTS WHEN REPOSITION OR WHEN DOING ATTENDS CHANGE. PATIENT HAS HAD MODERATE AMOUNT OF FLACK RED BLOOD FROM VULVA LESION, CHANGED PAD X1 TONIGHT, BLEEDING SEEMED TO SLOW DOWN AFTERWARDS FORMING LARGE CLOT BETWEEN THE LABIA. SHE SLEPT MOST OF THE NIGHT SCOOTING SELF DOWN IN BED SEVERAL TIMES NEEDING REPOSITION. NO OTHER ACUTE CHANGES HAVE OCCURRED THIS SHIFT. CALL LIGHT REMAINED IN REACH.
[2019-09-06 05:51] LABS: Albumin, Blood 2.4 g/dL (3.4-5.0); Anion Gap 6 mmol/L (6-16); Blood Urea Nitrogen 18 mg/dL (8-24); Bun/Creatinine Ratio 34.9 (12.0-20.0); CO2, Blood 28 mmol/L (21-32); Calcium, Blood 8.5 mg/dL (8.5-10.1); Chloride, Blood 107 mmol/L (98-108); Creatinine, Blood 0.52 mg/dL (0.40-1.00); Glomerular Filtration Rate >60 (60-); Glucose, Blood 68 mg/dL (70-99); Phosphorus, Blood 3.9 mg/dL (2.5-4.9); Potassium, Blood 3.9 mmol/L (3.5-5.5); Sodium, Blood 141 mmol/L (136-145)
--- NOTE | 2019-09-06 06:40 | NUR ---
DEVENDRA STARTED TO HAVE A COUGHING SPELL THIS MORNING. SHE TRIED TO COVER HER TRACH TO SEE IF SHE COULD GET A COULD ENOUGH COUGH BUT IT WAS NOT WORKING. SHE CONTINUED TO FEEL LIKE SHE COULD NOT CATCH HER BREATH AT TIMES. STATED HER TRACH HAS NEVER ACTED LIKE THIS BEFORE. SHE WAS FEARFUL AND IN TEARS. HELPED BY RAISING THE BED. COVERED HER TRACH TO SEE IF IT WORKED, SHE GOT ONE GOOD COUGH BUT STILL FELT LIKE IT WAS NOT CLEARED. CALLED RT TO COME LOOK AT HER TRACH AND HELP. SHE ALSO TRIED A DRINK OF WATER BUT IT DID NOT HELP WELL. RT CURRENTLY IN THE ROOM.
--- NOTE | 2019-09-06 18:58 | NUR ---
SHIFT SUMMARY. A&OX2, MEMORY DEFICITS, AWARE OF LIMITATIONS. INCONTIENT, ROUTINE CARE PROVIDED. SCANT DRAINAGE FROM VULVAR LESION, NO ACTIVE BLEEDING. PT/OT REQUESTED TO JUST DO BED EXERCISES SITTING AT THE EDGE OF THE BED AND STANDING CAUSED SIGNIFICANT BLEEDING AND PAIN DURING YESTERDAY'S PHYSICAL THERAPY TREATMENT. MEPILEX TO COCCYX/SACRUM, HEEL PROTECTORS PLACED HEELS RED ALTHOUGH BLANCHABLE. PT WITH POOR PO INTAKE, INTAKE IMPROVED WITH FEEDING ASSISTANCE, PT HAS POOR EYESIGHT. PAIN TO VULVAR MANAGED WITH CURRENT ORDERS. PT HAD ONE EPISODE OF TEARFULNESS, ATTEMPTED REASSURANCE AND COUNCEL, PRN XANAX GIVEN WITH GOOD EFFECT. PT'S BROTHER, REMINGTON, IN TO VISIT WITH PT. AFTER VISIT REMINGTON WAS ASKED HOW HE THOUGHT PT APPEARED, HE REPORTED THAT SHE APPEARED TO BE DECLINING, CODE STATUS DISCUSSED, HE REPORTED THAT SHE HAD GONE BACK AND FORTH WITH FULL CODE TO DNR OVER THE PAST FEW YEARS. HE IS ANTICIPATING APPOINTMENT AT CANCER CENTER PRIOR TO DISCUSSING FURTHER CODE STATUS, PT HAS POLST ON FILE THAT STATES FULL CODE. NO OTHER CHANGES OR CONCERNS.
--- NOTE | 2019-09-06 20:02 | NUR ---
DEVENDRA IS SLEEPING, AROUSES BY VERBAL STIMULI BUT IS LETHARGIC AND DROWSY. IS ABLE TO ANSWER FEW YES NO ANSWERS BUT FALLS RIGHT BACK TO SLEEP. DOES FOLLOW DIRECTIONS WHEN ASKED. ATTENDS DRY NO ACITIVE BLEEDING FROM LABIA LESION. LUNG SOUNDS DIMINISHED. WILL CONTINUE TO MONITOR AND ALLOW HER TO SLEEP SOME BEFORE MEDS. CALL LIGHT IN REACH.
[2019-09-07 05:19] LABS: BASOPHILS ABSOLUTE AUTO 0.02 K/mm3 (0.00-0.23); BASOPHILS PERCENT AUTO 1 % (0-2); EOSINOPHILS ABSOLUTE AUTO 0.08 K/mm3 (0.00-0.68); EOSINOPHILS PERCENT AUTO 2 % (0-6); Hematocrit 32.9 % (33.0-51.0); Hemoglobin 10.6 g/dL (11.5-16.0); IMMATURE GRAN ABSOLUTE AUTO 0.01 K/mm3 (0.00-0.10); IMMATURE GRAN PERCENT AUTO 0 % (0-1); LYMPHOCYTES ABSOLUTE AUTO 2.05 K/mm3 (0.84-5.20); LYMPHOCYTES PERCENT AUTO 48 % (21-46); MONOCYTES ABSOLUTE AUTO 0.42 K/mm3 (0.16-1.47); MONOCYTES PERCENT AUTO 10 % (4-13); Mean Corpuscular HGB 30.8 pg (26.0-34.0); Mean Corpuscular HGB Conc 32.2 g/dL (31.5-36.5); Mean Corpuscular Volume 96 fL (80-100); Mean Platelet Volume 10.2 fL (9.1-12.4); NEUTROPHILS ABSOLUTE AUTO 1.67 K/mm3 (1.96-9.15); NEUTROPHILS PERCENT AUTO 39 % (41-73); Platelet Count 96 K/mm3 (150-400); RDW Coefficient Variation 15.5 % (11.7-14.2); RDW Standard Deviation 53.8 fL (35.1-46.3); Red Blood Cell Count 3.44 M/mm3 (3.80-5.20); White Blood Cell Count 4.25 K/mm3 (4.00-11.30)
--- NOTE | 2019-09-07 05:43 | NUR ---
SHIFT SUMMARY: DEVENDRA WAS DROWSY AND TIRED AT START OF SHIFT WANTING TO SLEEP. SHE WOULD AWAKEN FOR MEDS AND CHANGES BUT WENT RIGHT BACK TO SLEEP. SWALLOW PRECAUTIONS WERE KEPT DURING ADMINISTRATION OF MEDS. LABIA LESION WITH NO CURRENT BLEEDING. VS HAVE REMAINED STABLE. PAIN REMAINED AT TOLERABLE LEVEL. NO OTHER ACUTE CHANGES TO NOTE. CALL LIGHT REMAINED IN REACH.
[2019-09-07 05:51] LABS: Alanine Aminotransfer (ALT/SGP 47 U/L (12-78); Albumin, Blood 2.5 g/dL (3.4-5.0); Albumin/Globulin Ratio 0.9 (0.8-1.8); Alk Phos 57 U/L (50-136); Anion Gap 4 mmol/L (6-16); Aspartate Aminotrans (AST/SGOT 52 U/L (12-37); Bilirubin, Total 0.3 mg/dL (0.1-1.0); Blood Urea Nitrogen 18 mg/dL (8-24); Bun/Creatinine Ratio 32.9 (12.0-20.0); CO2, Blood 31 mmol/L (21-32); Calcium, Blood 8.7 mg/dL (8.5-10.1); Chloride, Blood 107 mmol/L (98-108); Creatinine, Blood 0.55 mg/dL (0.40-1.00); Globulin, Blood 2.8 g/dL (2.2-4.0); Glomerular Filtration Rate >60 (60-); Glucose, Blood 70 mg/dL (70-99); Potassium, Blood 4.3 mmol/L (3.5-5.5); Sodium, Blood 142 mmol/L (136-145); Total Protein, Blood 5.3 g/dL (6.4-8.2)
--- NOTE | 2019-09-07 17:23 | NUR ---
SUMMARY PT IS A/O X2-3, SOMEWHAT FORGETFUL, SPEECH SOMEWHAT HARD TO UNDERSTAND D/T TRACHE STOMA, SITE OPEN/RESPTHER. SHE STATE NO CHEST PAIN T/O DAY. SHE HAD ONE EPISODE OF SHORTNESS OF BREATH/ANXIETY TODAY, GAVE XANAX, RT IN FOR NEB TX, PT STATE RELIEF. LABIA LESION ASSESSED PERIODICALLY, NO BLEEDING T/O DAY. SHE PARTICIPATED W PT/OT, WAS UP IN CHAIR FOR APPROX 2 HRS, 1 ASSIST. VISION IS POOR, SHE STATE SEES SHAPES, SHE IS ABLE TO FEED HERSELF AFTER SET-UP. VSS, BIOX 98% RA.
--- NOTE | 2019-09-08 05:00 | NUR ---
SHIFT SUMMARY PT IS A 69 Y/O FEMALE, ADMITTED FOR CHEST PAIN FROM [facility]. SHE IS A&O X 2-3, FORGETFUL AT TIMES, AND SLOW TO RESPOND. PT HAS AN OPEN TRACH SITE. PT REPORTED SEVERE PAIN IN HER LABIA R/T HER LABIAL LESION, AND WAS MEDICATED ONCE WITH PRN NORCO. SHE WAS ALSO MEDICATED ONCE FOR ANXIETY WITH PRN XANAX AT HS. NO COMPLAINTS OF CHEST PAIN, NAUSEA OR SOB. AFTER IT WAS FOUND THAT PT STILL HAD AN ACTIVE TELE ORDER WITH NO CURRENT TELE, TELE WAS PLACED. PER FRUIT BUYING GRADER, PT IS RUNNING SB AT 50-52 BPM. VITAL SIGNS OTHERWISE NORMAL. PT IS INCONTINENT, TURN Q2H. NO OTHER ACUTE CHANGES IN PT CONDITION NOTED. WILL CONTINUE TO MONITOR AND TREAT PER EMAR UNTIL HAND OFF TO DAY SHIFT RN.
--- NOTE | 2019-09-08 17:22 | NUR ---
SUMMARY PT IS A/O X3, SOMEWHAT FLAT AFFECT HOWEVER COOPERATIVE. HX TRACHE, UNCOVERED. SPEECH SOMEWHAT GARBLED R/T. SHE HAS HAD NO CHEST PAIN T/O DAY HOWEVER GAVE NORCO FOR BLE PAIN THIS AM. SHE HAS BEEN UP IN CHAIR, PARTICIPATED W PT/OT. LABIA LESION ASSESSED, NO BLEEDING T/O DAY. DR CHANG REVIEW BLOOD SUGARS ALL NORMAL, D/C CBG'S. VSS. PT CONTIUES TO AWAIT TRANSFER TO [facility] WHEN [facility] ABLE TO ARRANGE.
--- NOTE | 2019-09-09 04:55 | NUR ---
SHIFT SUMMARY PT IS A 69 Y/O FEMALE, ADMITTED FOR CHEST PAIN. SHE IS A&O X 2-3, FORGETFUL AT TIMES, WITH AN TRACHEOSTOMY SITE CURRENTLY LOWELL. PT DID REPORT ANXIETY AT THE START OF SHIFT, AND WAS MEDICATED WITH PRN XANAX. NO COMPLAINTS OF CHEST PAIN OR NAUSEA, THOUGH PT DID REPORT INCREASED SOB WHEN ANXIOUS. VITAL SIGNS STABLE. NO ACUTE CHANGES IN PT CONDITION NOTED. WILL CONTINUE TO MONITOR AND TREAT PER EMAR UNTIL HAND OFF TO DAY SHIFT RN.
--- NOTE | 2019-09-09 09:41 | NUR ---
@7:58 I charted incontinent void, attend was not very wet, so i didn't notice the cherry pad. Another stereoptic projection topographer went behind me shortly after i changed this patient, and noticed the wet pad.
--- NOTE | 2019-09-09 13:28 | NUR ---
DISCHARGE SUMMARY DEVENDRA HAD HER BROTHER AND MOTHER VISIT. PT ORIENTED TO LOCATION BUT NOT YEAR OR PRESIDENT. FORGETFUL. INCONTINENT URINE, TURNED REGULARLY AND CHANGED THIS SHIFT. STOMA (TRACH) SITE CLEANED WITH SOAP AND WATER EXTERNALLY. LABIAL WOUND NOT DRAINING, CLEANSED GENTLY WITH SOAP AND WATER. FALLS ASLEEP BETWEEN CARE. UNABLE TO GET HER UP WITH A02 DUE TO PT'S ANXIETY ABOUT HURTING STAFF, REASSURED HER BUT UNABLE TO GET HER UP. ASPIRATION PRECAUTIONS FOLLOWED, PT SWALLOWED FINE THIS SHIFT, SAT FULLY UPRIGHT FOR PO INTAKE. BOWEL MEDS GIVEN FOR CONSTIPATION. PIV REMOVED, [facility] TELE DC'D (HAD BEEN NSR), AWAITING TRANSPORTATION TO TAKE TO [facility]
== END 2019-09-09 16:35 | DRG 313 ==
LOC: ER 22:28 → ICUW 22:29 → MEDS 22:29 → ICUW 09-01 01:59 → PCU 09-01 17:45 → MEDS 09-04 02:35
PROVIDERS: Emergency Medicine; Internal Medicine; ADMIT Internal Medicine
DX: R07.9 Chest pain, unspecified (principal); I69.354 Hemiplegia and hemiparesis following cerebral infarction affecting left non-dominant side; E46 Unspecified protein-calorie malnutrition; Z79.82 Long term (current) use of aspirin; Z87.891 Personal history of nicotine dependence; Z98.84 Bariatric surgery status; I25.10 Atherosclerotic heart disease of native coronary artery without angina pectoris; G40.909 Epilepsy, unspecified, not intractable, without status epilepticus; K21.9 Gastro-esophageal reflux disease without esophagitis; M79.7 Fibromyalgia; J44.9 Chronic obstructive pulmonary disease, unspecified; Z99.3 Dependence on wheelchair; D07.1 Carcinoma in situ of vulva
CPT/HCPCS: 36415; 70450; 71046; 78452; 80053; 80061; 80069; 82947; 83036; 83880; 84443; 84484; 85025; 92610; 93005; 93010; 93017; 93308; 93321; 93971; 96360; 96361; 96372; 97110; 97116; 97162; 97166; 97530; 97535; 99285-25; A9270; A9270-GY; A9500; G0378; J1650; J2785; J3010; J7030

== ENCOUNTER → 2019-12-14 | Outpatient (CLI) | payer MEDICARE, OTHER ==
[~2019-12-14] MED LIST changes: +DULO30 PO
[2019-12-14 14:59] LABS: Source, Urine Voided
[2019-12-14 16:09] LABS: Bilirubin, Urine Neg (Neg); Blood, Urine 4+ (Neg); Glucose Qualitative, Urine 3+ (Neg); Ketones, Urine Neg (Neg); Leukocyte Esterase, Urine 3+ (Neg); Nitrite, Urine Pos (Neg); Protein, Urine 2+ (Neg); Specific Gravity, Urine 1.025 (1.003-1.022); Urobilinogen, Urine NORM (Normal)
[2019-12-14 16:16] LABS: Appearance, Urine Hazy (Clear); Color, Urine Yellow (P-Yellow)
[2019-12-14 16:17] LABS: Bacteria Many /hpf; Red Blood Cells, Urine TNTC /hpf (0-2); Squamous Epithelial Cells Few /hpf (Few); White Blood Cells, Urine TNTC /hpf (0-5)
== END | disposition home or self-care (01) ==
LOC: LAB 14:37 → LAB SHORT 14:37
PROVIDERS: Internal Medicine
DX: N39.3 Stress incontinence (female) (male) (principal); Z87.440 Personal history of urinary (tract) infections
CPT/HCPCS: 81001; 87086

== ENCOUNTER → 2020-04-05 | Outpatient (CLI) | payer MEDICARE, OTHER ==
[2020-04-05 19:56] LABS: Appearance, Urine Clear (Clear); Bilirubin, Urine Neg (Neg); Blood, Urine 2+ (Neg); Color, Urine Yellow (P-Yellow); Glucose Qualitative, Urine Neg (Neg); Ketones, Urine Neg (Neg); Leukocyte Esterase, Urine Neg (Neg); Nitrite, Urine Neg (Neg); Protein, Urine Neg (Neg); Specific Gravity, Urine 1.015 (1.003-1.022); Urobilinogen, Urine 1+ (Normal); pH, Urine 6.5 (5.0-8.0)
[2020-04-05 20:15] LABS: Red Blood Cells, Urine 0-2 /hpf (0-2); White Blood Cells, Urine Not Seen /hpf (0-5)
[2020-04-05 20:16] LABS: Bacteria Not Seen /hpf; Calcium Oxalate Crystals Mod /hpf; Squamous Epithelial Cells Rare /hpf (Few)
== END | disposition home or self-care (01) ==
LOC: LAB SHORT 19:05 → LAB 19:05
PROVIDERS: Radiology Radiation Oncology
DX: R82.89 Other abnormal findings on cytological and histological examination of urine (principal)
CPT/HCPCS: 81001

== ENCOUNTER → 2020-04-27 | Outpatient (CLI) | payer MEDICARE, OTHER ==
[2020-04-27 19:27] LABS: Source, Urine Clean Catch
[2020-04-27 19:46] LABS: Bilirubin, Urine Neg (Neg); Blood, Urine 2+ (Neg); Glucose Qualitative, Urine Neg (Neg); Ketones, Urine 1+ (Neg); Leukocyte Esterase, Urine Neg (Neg); Nitrite, Urine Neg (Neg); Protein, Urine Neg (Neg); Specific Gravity, Urine 1.015 (1.003-1.022); Urobilinogen, Urine NORM (Normal); pH, Urine 6.5 (5.0-8.0)
[2020-04-27 19:56] LABS: Appearance, Urine Clear (Clear); Color, Urine Yellow (P-Yellow)
[2020-04-27 19:57] LABS: Bacteria Few /hpf; Squamous Epithelial Cells Few /hpf (Few); White Blood Cells, Urine 0-2 /hpf (0-5)
== END | disposition home or self-care (01) ==
LOC: LAB 19:24 → LAB SHORT 19:24
PROVIDERS: Radiology Radiation Oncology
DX: C51.9 Malignant neoplasm of vulva, unspecified (principal)
CPT/HCPCS: 81001

== ENCOUNTER → 2020-05-09 | Outpatient (CLI) | payer MEDICARE, OTHER ==
[2020-05-09 19:16] LABS: Source, Urine Clean Catch
[2020-05-09 20:03] LABS: Bilirubin, Urine Neg (Neg); Blood, Urine Neg (Neg); Glucose Qualitative, Urine Neg (Neg); Ketones, Urine Neg (Neg); Leukocyte Esterase, Urine Neg (Neg); Nitrite, Urine Neg (Neg); Protein, Urine Neg (Neg); Specific Gravity, Urine 1.015 (1.003-1.022); Urobilinogen, Urine NORM (Normal)
[2020-05-09 20:09] LABS: Appearance, Urine Clear (Clear); Color, Urine Pale Yellow (P-Yellow)
== END | disposition home or self-care (01) ==
LOC: LAB 19:15 → LAB SHORT 19:15 → LAB FUT 05-07 13:20
PROVIDERS: Registered Nurse
DX: N39.0 Urinary tract infection, site not specified (principal); R31.9 Hematuria, unspecified
CPT/HCPCS: 81003

== ENCOUNTER → 2020-05-24 | Outpatient (CLI) | payer MEDICARE, OTHER ==
[2020-05-24 20:45] LABS: BASOPHILS ABSOLUTE AUTO 0.04 K/mm3 (0.00-0.23); BASOPHILS PERCENT AUTO 1 % (0-2); EOSINOPHILS ABSOLUTE AUTO 0.04 K/mm3 (0.00-0.68); EOSINOPHILS PERCENT AUTO 1 % (0-6); Hematocrit 42.7 % (33.0-51.0); Hemoglobin 13.7 g/dL (11.5-16.0); IMMATURE GRAN ABSOLUTE AUTO 0.01 K/mm3 (0.00-0.10); IMMATURE GRAN PERCENT AUTO 0 % (0-1); LYMPHOCYTES PERCENT AUTO 39 % (21-46); MONOCYTES ABSOLUTE AUTO 0.44 K/mm3 (0.16-1.47); MONOCYTES PERCENT AUTO 9 % (4-13); Mean Corpuscular HGB 30.6 pg (26.0-34.0); Mean Corpuscular HGB Conc 32.1 g/dL (31.5-36.5); Mean Corpuscular Volume 95 fL (80-100); Mean Platelet Volume 11.2 fL (9.1-12.4); NEUTROPHILS ABSOLUTE AUTO 2.61 K/mm3 (1.96-9.15); NEUTROPHILS PERCENT AUTO 51 % (41-73); Platelet Count 143 K/mm3 (150-400); RDW Coefficient Variation 13.5 % (11.7-14.2); RDW Standard Deviation 46.5 fL (35.1-46.3); Red Blood Cell Count 4.48 M/mm3 (3.80-5.20); White Blood Cell Count 5.14 K/mm3 (4.00-11.30)
[2020-05-24 21:04] LABS: Alanine Aminotransfer (ALT/SGP 29 U/L (12-78); Albumin, Blood 3.2 g/dL (3.4-5.0); Alk Phos 89 U/L (50-136); Anion Gap 7 mmol/L (6-16); Aspartate Aminotrans (AST/SGOT 25 U/L (12-37); Bilirubin, Total 0.2 mg/dL (0.1-1.0); Blood Urea Nitrogen 20 mg/dL (8-24); Bun/Creatinine Ratio 35.4 (12.0-20.0); CO2, Blood 29 mmol/L (21-32); Calcium, Blood 8.6 mg/dL (8.5-10.1); Chloride, Blood 104 mmol/L (98-108); Creatinine, Blood 0.57 mg/dL (0.40-1.00); Globulin, Blood 3.3 g/dL (2.2-4.0); Glomerular Filtration Rate >60 (60-); Glucose, Blood 58 mg/dL (70-99); Potassium, Blood 4.1 mmol/L (3.5-5.5); Sodium, Blood 140 mmol/L (136-145); Total Protein, Blood 6.5 g/dL (6.4-8.2)
== END | disposition home or self-care (01) ==
LOC: LAB 19:40 → LAB SHORT 19:40
PROVIDERS: Registered Nurse
DX: I10 Essential (primary) hypertension (principal); E03.9 Hypothyroidism, unspecified; Z79.899 Other long term (current) drug therapy
CPT/HCPCS: 80053; 84443; 85025

== ENCOUNTER → 2020-06-26 | Outpatient (CLI) | payer MEDICARE, OTHER ==
[2020-06-26 20:04] LABS: Valproic Acid 61.7 ug/mL (50.0-100.0)
== END | disposition home or self-care (01) ==
LOC: LAB 19:03 → LAB SHORT 19:03
PROVIDERS: Registered Nurse
DX: Z51.81 Encounter for therapeutic drug level monitoring (principal); I63.50 Cerebral infarction due to unspecified occlusion or stenosis of unspecified cerebral artery; R56.9 Unspecified convulsions; F01.50 Vascular dementia, unspecified severity, without behavioral disturbance, psychotic disturbance, mood disturbance, and anxiety; Z79.899 Other long term (current) drug therapy
CPT/HCPCS: 80164

== ENCOUNTER 2020-09-15 17:38 | Emergency (ER) | payer MEDICARE, OTHER ==
[~2020-09-15] VITALS: Ht 167.6 cm; Wt 104.3 kg
[~2020-09-15 17:38] MED LIST changes: +EUTHYROX50 MCG PO; +Vitamin B-121000 MCG PO; -[UNRECOGNIZED DRUG - CODE] PO
[2020-09-15 18:01] LABS: BASOPHILS ABSOLUTE AUTO 0.05 K/mm3 (0.00-0.23); BASOPHILS PERCENT AUTO 1 % (0-2); EOSINOPHILS ABSOLUTE AUTO 0.06 K/mm3 (0.00-0.68); EOSINOPHILS PERCENT AUTO 1 % (0-6); Hematocrit 41.6 % (33.0-51.0); Hemoglobin 13.2 g/dL (11.5-16.0); IMMATURE GRAN PERCENT AUTO 0 % (0-1); LYMPHOCYTES ABSOLUTE AUTO 2.48 K/mm3 (0.84-5.20); LYMPHOCYTES PERCENT AUTO 40 % (21-46); MONOCYTES ABSOLUTE AUTO 0.54 K/mm3 (0.16-1.47); MONOCYTES PERCENT AUTO 9 % (4-13); Mean Corpuscular HGB 30.3 pg (26.0-34.0); Mean Corpuscular HGB Conc 31.7 g/dL (31.5-36.5); Mean Corpuscular Volume 95 fL (80-100); Mean Platelet Volume 10.2 fL (9.1-12.4); NEUTROPHILS ABSOLUTE AUTO 3.04 K/mm3 (1.96-9.15); NEUTROPHILS PERCENT AUTO 49 % (41-73); Platelet Count 158 K/mm3 (150-400); RDW Coefficient Variation 13.3 % (11.7-14.2); RDW Standard Deviation 47.3 fL (35.1-46.3); Red Blood Cell Count 4.36 M/mm3 (3.80-5.20); White Blood Cell Count 6.17 K/mm3 (4.00-11.30)
[2020-09-15] MEDS ORDERED: ONDA4 PO (18:14)
[2020-09-15] MEDS ORDERED: LOPE2C PO (18:14)
[2020-09-15] MEDS ORDERED: OMEP20ER PO (18:16)
[2020-09-15] MEDS ORDERED: POTA20PAC PO (18:16)
[2020-09-15] MEDS ORDERED: FURO40 PO (18:18)
[2020-09-15 18:22] LABS: Alanine Aminotransfer (ALT/SGP 21 U/L (12-78); Albumin, Blood 3.1 g/dL (3.4-5.0); Alk Phos 92 U/L (50-136); Anion Gap 4 mmol/L (6-16); Aspartate Aminotrans (AST/SGOT 21 U/L (12-37); Bilirubin, Total 0.4 mg/dL (0.1-1.0); Blood Urea Nitrogen 25 mg/dL (8-24); Bun/Creatinine Ratio 38.9 (12.0-20.0); CO2, Blood 28 mmol/L (21-32); Calcium, Blood 8.3 mg/dL (8.5-10.1); Chloride, Blood 107 mmol/L (98-108); Creatinine, Blood 0.64 mg/dL (0.40-1.00); Globulin, Blood 3.1 g/dL (2.2-4.0); Glomerular Filtration Rate >60 (60-); Glucose, Blood 137 mg/dL (70-99); Potassium, Blood 4.2 mmol/L (3.5-5.5); Sodium, Blood 139 mmol/L (136-145); Total Protein, Blood 6.2 g/dL (6.4-8.2); Troponin I <0.015 ng/mL (0.000-0.040)
[2020-09-15 21:17] LABS: Troponin I <0.015 ng/mL (0.000-0.040)
== END 2020-09-15 21:48 | disposition home or self-care (01) ==
LOC: ER 17:38
PROVIDERS: Physician Assistant
DX: K52.9 Noninfective gastroenteritis and colitis, unspecified (principal); K85.90 Acute pancreatitis without necrosis or infection, unspecified; K59.00 Constipation, unspecified; I10 Essential (primary) hypertension; F17.200 Nicotine dependence, unspecified, uncomplicated; Z79.82 Long term (current) use of aspirin; Z79.02 Long term (current) use of antithrombotics/antiplatelets; Z79.899 Other long term (current) drug therapy; Z88.2 Allergy status to sulfonamides; Z88.1 Allergy status to other antibiotic agents; Z86.73 Personal history of transient ischemic attack (TIA), and cerebral infarction without residual deficits
CPT/HCPCS: 36415; 71045; 74177; 80053; 83690; 83880; 84484; 85025; 93005; 93010; 96360; 99285-25; J7030; Q9967

== ENCOUNTER → 2020-09-18 | Outpatient (CLI) | payer MEDICARE, OTHER ==
[~2020-09-18] MED LIST changes: +FURO40 PO; +LOPE2C PO; +OMEP20ER PO; +ONDA4 PO; +POTA20PAC PO
== END ==
LOC: LAB 19:18 → LAB SHORT 19:18
DX: R19.8 Other specified symptoms and signs involving the digestive system and abdomen (principal); R19.5 Other fecal abnormalities
CPT/HCPCS: 87493

== ENCOUNTER → 2021-12-04 | Outpatient (CLI) | payer MEDICARE, OTHER ==
[2021-12-04 15:34] LABS: Thyroxine (T4) 7.3 ug/dL (4.8-13.9); Valproic Acid 87.9 ug/mL (50.0-100.0)
== END | disposition home or self-care (01) ==
LOC: LAB SHORT 10:15
PROVIDERS: Registered Nurse
DX: I69.351 Hemiplegia and hemiparesis following cerebral infarction affecting right dominant side (principal); I63.50 Cerebral infarction due to unspecified occlusion or stenosis of unspecified cerebral artery; F01.50 Vascular dementia, unspecified severity, without behavioral disturbance, psychotic disturbance, mood disturbance, and anxiety; G93.41 Metabolic encephalopathy; M62.81 Muscle weakness (generalized); E11.9 Type 2 diabetes mellitus without complications; J44.9 Chronic obstructive pulmonary disease, unspecified; D07.1 Carcinoma in situ of vulva; E03.9 Hypothyroidism, unspecified; E78.5 Hyperlipidemia, unspecified; I25.10 Atherosclerotic heart disease of native coronary artery without angina pectoris; R26.81 Unsteadiness on feet; R56.9 Unspecified convulsions
CPT/HCPCS: 80164; 84436; 84443

== ENCOUNTER → 2022-03-20 | Outpatient (CLI) | payer MEDICARE, OTHER | END | disposition home or self-care (01) | LOC: LAB SHORT 15:30 → LAB 15:30 | DX: N39.0 Urinary tract infection, site not specified (principal) | CPT/HCPCS: 87077; 87086; 87186 ==

== ENCOUNTER → 2022-04-15 | Outpatient (CLI) | payer MEDICARE, OTHER ==
[2022-04-16 12:36] LABS: Source, Urine Clean Catch
[2022-04-16 15:40] LABS: Appearance, Urine Clear (Clear); Bilirubin, Urine Neg (Neg); Blood, Urine Neg (Neg); Color, Urine Yellow (P-Yellow); Glucose Qualitative, Urine Neg (Neg); Ketones, Urine Neg (Neg); Leukocyte Esterase, Urine 2+ (Neg); Nitrite, Urine Neg (Neg); Protein, Urine Neg (Neg); Specific Gravity, Urine 1.015 (1.003-1.022); Urobilinogen, Urine NORM (Normal)
[2022-04-16 16:19] LABS: Bacteria Few /hpf; Red Blood Cells, Urine 0-2 /hpf (0-2); Squamous Epithelial Cells Few /hpf (Few)
== END | disposition home or self-care (01) ==
LOC: LAB SHORT 11:30
PROVIDERS: Registered Nurse
DX: N39.0 Urinary tract infection, site not specified (principal)
CPT/HCPCS: 81001; 87077; 87086; 87186

== ENCOUNTER → 2022-05-28 | Outpatient (CLI) | payer MEDICARE, OTHER ==
[2022-05-28 18:22] LABS: Source, Urine Clean Catch
[2022-05-28 19:14] LABS: Appearance, Urine Clear (Clear); Bilirubin, Urine Neg (Neg); Blood, Urine 1+ (Neg); Color, Urine Yellow (P-Yellow); Glucose Qualitative, Urine Neg (Neg); Ketones, Urine Neg (Neg); Leukocyte Esterase, Urine Neg (Neg); Nitrite, Urine Neg (Neg); Protein, Urine Neg (Neg); Specific Gravity, Urine 1.025 (1.003-1.022); Urobilinogen, Urine NORM (Normal)
[2022-05-28 19:36] LABS: Bacteria Rare /hpf; Calcium Oxalate Crystals Rare /hpf; Squamous Epithelial Cells Few /hpf (Few); White Blood Cells, Urine 0-2 /hpf (0-5)
== END | disposition home or self-care (01) ==
LOC: LAB 12:30 → LAB SHORT 12:30
PROVIDERS: Registered Nurse
DX: N39.0 Urinary tract infection, site not specified (principal)
CPT/HCPCS: 81001

== ENCOUNTER → 2022-06-10 | Outpatient (CLI) | payer MEDICARE, OTHER ==
[2022-06-10 15:17] LABS: BASOPHILS ABSOLUTE AUTO 0.04 K/mm3 (0.00-0.23); BASOPHILS PERCENT AUTO 1 % (0-2); EOSINOPHILS ABSOLUTE AUTO 0.08 K/mm3 (0.00-0.68); EOSINOPHILS PERCENT AUTO 2 % (0-6); Hematocrit 34.8 % (33.0-51.0); Hemoglobin 10.9 g/dL (11.5-16.0); IMMATURE GRAN PERCENT AUTO 0 % (0-1); LYMPHOCYTES ABSOLUTE AUTO 3.16 K/mm3 (0.84-5.20); LYMPHOCYTES PERCENT AUTO 60 % (21-46); MONOCYTES ABSOLUTE AUTO 0.44 K/mm3 (0.16-1.47); MONOCYTES PERCENT AUTO 8 % (4-13); Mean Corpuscular HGB 27.8 pg (26.0-34.0); Mean Corpuscular HGB Conc 31.3 g/dL (31.5-36.5); Mean Corpuscular Volume 89 fL (80-100); Mean Platelet Volume 11.1 fL (9.1-12.4); NEUTROPHILS ABSOLUTE AUTO 1.59 K/mm3 (1.96-9.15); NEUTROPHILS PERCENT AUTO 30 % (41-73); Platelet Count 163 K/mm3 (150-400); RDW Coefficient Variation 15.4 % (11.7-14.2); RDW Standard Deviation 49.4 fL (35.1-46.3); Red Blood Cell Count 3.92 M/mm3 (3.80-5.20); White Blood Cell Count 5.31 K/mm3 (4.00-11.30)
[2022-06-10 16:25] LABS: Alanine Aminotransfer (ALT/SGP 18 U/L (12-78); Albumin, Blood 2.5 g/dL (3.4-5.0); Alk Phos 78 U/L (50-136); Anion Gap 5 mmol/L (6-16); Aspartate Aminotrans (AST/SGOT 15 U/L (12-37); Bilirubin, Total 0.2 mg/dL (0.1-1.0); Blood Urea Nitrogen 16 mg/dL (8-24); Bun/Creatinine Ratio 26.9 (12.0-20.0); CHOL/HDL RATIO 2.4; CO2, Blood 28 mmol/L (21-32); Calcium, Blood 8.6 mg/dL (8.5-10.1); Chloride, Blood 109 mmol/L (98-108); Cholesterol 120 mg/dL (50-200); Creatinine, Blood 0.59 mg/dL (0.40-1.00); Globulin, Blood 2.5 g/dL (2.2-4.0); Glomerular Filtration Rate 96 (60-); Glucose, Blood 80 mg/dL (70-99); HDL Cholesterol 50 mg/dL (>39); LDL/HDL RATIO 1.3; Low Density Lipoprotein Chol 63 mg/dL (0-110); Potassium, Blood 4.2 mmol/L (3.5-5.5); Sodium, Blood 142 mmol/L (136-145); Triglycerides 37 mg/dL (30-160); Very Low Density Lipoprot Chol 7 mg/dL (6-32)
== END | disposition home or self-care (01) ==
LOC: LAB SHORT 08:25 → LAB 08:25
PROVIDERS: Registered Nurse
DX: Z51.81 Encounter for therapeutic drug level monitoring (principal); E03.9 Hypothyroidism, unspecified; E78.5 Hyperlipidemia, unspecified; I10 Essential (primary) hypertension; R73.09 Other abnormal glucose
CPT/HCPCS: 80053; 80061; 83036; 84443; 85025

== ENCOUNTER → 2022-08-01 | Outpatient (CLI) | payer MEDICARE, OTHER ==
[2022-08-01 19:16] LABS: Source, Urine Clean Catch
[2022-08-01 19:37] LABS: Appearance, Urine Clear (Clear); Bilirubin, Urine Neg (Neg); Blood, Urine 1+ (Neg); Color, Urine Yellow (P-Yellow); Glucose Qualitative, Urine Neg (Neg); Ketones, Urine Neg (Neg); Leukocyte Esterase, Urine 2+ (Neg); Nitrite, Urine Neg (Neg); Protein, Urine 1+ (Neg); Urobilinogen, Urine NORM (Normal)
[2022-08-01 19:52] LABS: Bacteria Many /hpf; Calcium Oxalate Crystals Few /hpf; Hyaline Casts 0-2 /lpf (0-2); Squamous Epithelial Cells Few /hpf (Few); White Blood Cells, Urine 25-50 /hpf (0-5)
== END ==
LOC: LAB 19:15 → LAB SHORT 19:15
PROVIDERS: Registered Nurse
DX: N39.0 Urinary tract infection, site not specified (principal)
CPT/HCPCS: 81001; 87077; 87086; 87186

== ENCOUNTER 2022-08-15 12:53 | Emergency (ER) | payer MEDICARE, OTHER ==
[~2022-08-15] VITALS: Ht 167.6 cm; Wt 86.2 kg
== END 2022-08-15 17:31 | disposition home or self-care (01) ==
LOC: ER 12:53
DX: T18.128A Food in esophagus causing other injury, initial encounter (principal); R09.89 Other specified symptoms and signs involving the circulatory and respiratory systems; K21.9 Gastro-esophageal reflux disease without esophagitis; I10 Essential (primary) hypertension; E11.9 Type 2 diabetes mellitus without complications; E03.9 Hypothyroidism, unspecified; X58.XXXA Exposure to other specified factors, initial encounter; Z88.2 Allergy status to sulfonamides; Z88.1 Allergy status to other antibiotic agents; Z79.82 Long term (current) use of aspirin; Z79.890 Hormone replacement therapy; Z79.899 Other long term (current) drug therapy; Z86.73 Personal history of transient ischemic attack (TIA), and cerebral infarction without residual deficits; Z87.891 Personal history of nicotine dependence
CPT/HCPCS: 71045; J1610; J2405

== ENCOUNTER → 2022-11-03 | Outpatient (CLI) | payer MEDICARE, OTHER ==
[2022-11-04 08:05] LABS: Source, Urine Clean Catch
[2022-11-04 08:08] LABS: Bilirubin, Urine Neg (Neg); Blood, Urine 1+ (Neg); Glucose Qualitative, Urine Neg (Neg); Ketones, Urine Neg (Neg); Leukocyte Esterase, Urine 2+ (Neg); Nitrite, Urine Neg (Neg); Protein, Urine 1+ (Neg); Specific Gravity, Urine 1.015 (1.003-1.022); Urobilinogen, Urine 1+ (Normal)
[2022-11-04 08:21] LABS: Appearance, Urine Hazy (Clear); Bacteria Rare /hpf; Color, Urine Yellow (P-Yellow); Red Blood Cells, Urine Not Seen /hpf (0-2); Squamous Epithelial Cells Few /hpf (Few)
== END | disposition home or self-care (01) ==
LOC: LAB SHORT 13:00
PROVIDERS: Registered Nurse
DX: N39.0 Urinary tract infection, site not specified (principal)
CPT/HCPCS: 81001; 87077; 87086; 87186

== ENCOUNTER → 2022-11-06 | Outpatient (CLI) | payer MEDICARE, OTHER ==
[2022-11-06 18:57] LABS: BASOPHILS ABSOLUTE AUTO 0.05 K/mm3 (0.00-0.23); BASOPHILS PERCENT AUTO 1 % (0-2); EOSINOPHILS ABSOLUTE AUTO 0.06 K/mm3 (0.00-0.68); EOSINOPHILS PERCENT AUTO 1 % (0-6); Hematocrit 37.6 % (33.0-51.0); IMMATURE GRAN ABSOLUTE AUTO 0.01 K/mm3 (0.00-0.10); IMMATURE GRAN PERCENT AUTO 0 % (0-1); LYMPHOCYTES ABSOLUTE AUTO 1.82 K/mm3 (0.84-5.20); LYMPHOCYTES PERCENT AUTO 30 % (21-46); MONOCYTES ABSOLUTE AUTO 0.75 K/mm3 (0.16-1.47); MONOCYTES PERCENT AUTO 13 % (4-13); Mean Corpuscular HGB 26.7 pg (26.0-34.0); Mean Corpuscular HGB Conc 31.9 g/dL (31.5-36.5); Mean Corpuscular Volume 84 fL (80-100); Mean Platelet Volume 10.4 fL (9.1-12.4); NEUTROPHILS ABSOLUTE AUTO 3.29 K/mm3 (1.96-9.15); NEUTROPHILS PERCENT AUTO 55 % (41-73); Platelet Count 177 K/mm3 (150-400); RDW Coefficient Variation 17.2 % (11.7-14.2); RDW Standard Deviation 52.1 fL (35.1-46.3); White Blood Cell Count 5.98 K/mm3 (4.00-11.30)
[2022-11-06 19:54] LABS: Thyroid Stimulating Hormone 1.84 uIU/mL (0.360-4.800)
[2022-11-06 20:16] LABS: Albumin, Blood 2.9 g/dL (3.4-5.0); Albumin/Globulin Ratio 0.9 (0.8-1.8); Bilirubin, Total 0.3 mg/dL (0.1-1.0); Bun/Creatinine Ratio 26.5 (12.0-20.0); Calcium, Blood 8.6 mg/dL (8.5-10.1); Creatinine, Blood 0.57 mg/dL (0.40-1.00); Globulin, Blood 3.2 g/dL (2.2-4.0); Potassium, Blood 4.2 mmol/L (3.5-5.5); Total Protein, Blood 6.1 g/dL (6.4-8.2)
== END | disposition home or self-care (01) ==
LOC: LAB SHORT 15:23
PROVIDERS: Registered Nurse
DX: E03.2 Hypothyroidism due to medicaments and other exogenous substances (principal); I10 Essential (primary) hypertension; R63.4 Abnormal weight loss
CPT/HCPCS: 80053; 84443; 85025

== ENCOUNTER → 2023-03-02 | Outpatient (CLI) | payer MEDICARE, OTHER ==
[2023-03-02 14:18] LABS: Source, Urine Clean Catch
[2023-03-02 16:05] LABS: Appearance, Urine Hazy (Clear); Bilirubin, Urine Neg (Neg); Blood, Urine 4+ (Neg); Color, Urine Yellow (P-Yellow); Glucose Qualitative, Urine Neg (Neg); Ketones, Urine Neg (Neg); Leukocyte Esterase, Urine 3+ (Neg); Nitrite, Urine Pos (Neg); Protein, Urine 2+ (Neg); Specific Gravity, Urine 1.015 (1.003-1.022); Urobilinogen, Urine NORM (Normal)
[2023-03-02 16:26] LABS: Bacteria Many /hpf; Squamous Epithelial Cells Few /hpf (Few); White Blood Cells, Urine 50-100 /hpf (0-5)
== END | disposition home or self-care (01) ==
LOC: LAB SHORT 14:12
PROVIDERS: Registered Nurse
DX: N39.0 Urinary tract infection, site not specified (principal)
CPT/HCPCS: 81001; 87077; 87086; 87186

== ENCOUNTER → 2023-07-23 | Outpatient (CLI) | payer MEDICARE, OTHER ==
[2023-07-23 10:46] LABS: Source, Urine Clean Catch
[2023-07-23 11:32] LABS: Appearance, Urine Hazy (Clear); Bilirubin, Urine Neg (Neg); Blood, Urine Neg (Neg); Color, Urine Yellow (P-Yellow); Glucose Qualitative, Urine Neg (Neg); Ketones, Urine Neg (Neg); Leukocyte Esterase, Urine 1+ (Neg); Nitrite, Urine Pos (Neg); Protein, Urine 1+ (Neg); Urobilinogen, Urine NORM (Normal)
[2023-07-23 11:47] LABS: Squamous Epithelial Cells Mod /hpf (Few); White Blood Cells, Urine 25-50 /hpf (0-5)
[2023-07-23 11:48] LABS: Bacteria Many /hpf; Transitional Epithelial Cells Rare /hpf (0-Rare)
== END ==
LOC: LAB 10:43 → LAB SHORT 10:43
PROVIDERS: Registered Nurse
DX: N39.0 Urinary tract infection, site not specified (principal)
CPT/HCPCS: 81001; 87077; 87086; 87186

== ENCOUNTER → 2023-08-04 | Outpatient (CLI) | payer MEDICARE, OTHER ==
[2023-08-05 16:31] LABS: Source, Urine Voided
[2023-08-05 17:26] LABS: Appearance, Urine Hazy (Clear); Bilirubin, Urine Neg (Neg); Blood, Urine Neg (Neg); Glucose Qualitative, Urine Neg (Neg); Ketones, Urine Neg (Neg); Leukocyte Esterase, Urine 1+ (Neg); Nitrite, Urine Neg (Neg); Protein, Urine Neg (Neg); Specific Gravity, Urine 1.015 (1.003-1.022); Urobilinogen, Urine NORM (Normal)
[2023-08-05 17:46] LABS: Color, Urine Pale Yellow (P-Yellow)
[2023-08-05 17:48] LABS: Bacteria Many /hpf; Red Blood Cells, Urine 0-2 /hpf (0-2); Squamous Epithelial Cells Few /hpf (Few)
== END | disposition home or self-care (01) ==
LOC: LAB 16:30 → LAB SHORT 16:30
PROVIDERS: Registered Nurse
DX: N39.0 Urinary tract infection, site not specified (principal)
CPT/HCPCS: 81001; 87077; 87086; 87186

== ENCOUNTER → 2024-01-20 | Outpatient (CLI) | payer MEDICARE, OTHER ==
[2024-01-20 10:51] LABS: BASOPHILS ABSOLUTE AUTO 0.06 K/mm3 (0.00-0.23); BASOPHILS PERCENT AUTO 1 % (0-2); EOSINOPHILS ABSOLUTE AUTO 0.06 K/mm3 (0.00-0.68); EOSINOPHILS PERCENT AUTO 1 % (0-6); Hematocrit 40.4 % (33.0-51.0); Hemoglobin 12.8 g/dL (11.5-16.0); IMMATURE GRAN ABSOLUTE AUTO 0.01 K/mm3 (0.00-0.10); IMMATURE GRAN PERCENT AUTO 0 % (0-1); LYMPHOCYTES ABSOLUTE AUTO 2.44 K/mm3 (0.84-5.20); LYMPHOCYTES PERCENT AUTO 47 % (21-46); MONOCYTES ABSOLUTE AUTO 0.49 K/mm3 (0.16-1.47); MONOCYTES PERCENT AUTO 10 % (4-13); Mean Corpuscular HGB 25.9 pg (26.0-34.0); Mean Corpuscular HGB Conc 31.7 g/dL (31.5-36.5); Mean Corpuscular Volume 82 fL (80-100); NEUTROPHILS PERCENT AUTO 41 % (41-73); Platelet Count 192 K/mm3 (150-400); RDW Coefficient Variation 18.6 % (11.7-14.2); RDW Standard Deviation 53.7 fL (35.1-46.3); Red Blood Cell Count 4.94 M/mm3 (3.80-5.20); White Blood Cell Count 5.16 K/mm3 (4.00-11.30)
[2024-01-20 11:07] LABS: Alanine Aminotransfer (ALT/SGP 17 U/L (12-78); Albumin, Blood 3.2 g/dL (3.4-5.0); Albumin/Globulin Ratio 0.9 (0.8-1.8); Alk Phos 84 U/L (40-126); Anion Gap 14 mmol/L (6-16); Aspartate Aminotrans (AST/SGOT 26 U/L (12-37); Bilirubin, Total 0.3 mg/dL (0.1-1.0); Blood Urea Nitrogen 14 mg/dL (8-24); CHOL/HDL RATIO 2.4; CO2, Blood 31 mmol/L (21-32); Calcium, Blood 8.9 mg/dL (8.5-10.1); Chloride, Blood 103 mmol/L (98-108); Cholesterol 160 mg/dL (50-200); Globulin, Blood 3.7 g/dL (2.2-4.0); Glomerular Filtration Rate 92 (60-); Glucose, Blood 88 mg/dL (70-99); HDL Cholesterol 68 mg/dL (>39); LDL/HDL RATIO 1.2; Low Density Lipoprotein Chol 84 mg/dL (<110); Potassium, Blood 4.7 mmol/L (3.5-5.5); Sodium, Blood 143 mmol/L (136-145); Total Protein, Blood 6.9 g/dL (6.4-8.2); Triglycerides 42 mg/dL (30-160); Very Low Density Lipoprot Chol 8 mg/dL (6-32)
[2024-01-20 15:28] LABS: Valproic Acid 58.7 ug/mL (50.0-100.0)
== END | disposition home or self-care (01) ==
LOC: LAB SHORT 10:33 → LAB 10:33
PROVIDERS: Family Medicine
DX: I10 Essential (primary) hypertension (principal); E03.2 Hypothyroidism due to medicaments and other exogenous substances; E78.5 Hyperlipidemia, unspecified; R56.9 Unspecified convulsions; Z79.899 Other long term (current) drug therapy
CPT/HCPCS: 80053; 80061; 80164; 84443; 85025

== ENCOUNTER → 2024-01-26 | Outpatient (CLI) | payer MEDICARE, OTHER ==
[2024-01-27 11:02] LABS: Source, Urine Voided
[2024-01-27 12:00] LABS: Appearance, Urine Clear (Clear); Bilirubin, Urine Neg (Neg); Blood, Urine Neg (Neg); Color, Urine Yellow (P-Yellow); Glucose Qualitative, Urine Neg (Neg); Ketones, Urine Neg (Neg); Leukocyte Esterase, Urine 3+ (Neg); Nitrite, Urine Neg (Neg); Protein, Urine Neg (Neg); Urobilinogen, Urine NORM (Normal)
[2024-01-27 12:21] LABS: Bacteria Few /hpf; Red Blood Cells, Urine Not Seen /hpf (0-2); Squamous Epithelial Cells Few /hpf (Few)
== END | disposition home or self-care (01) ==
LOC: LAB EV 19:00 → LAB SHORT 19:00
PROVIDERS: Family Medicine
DX: N39.0 Urinary tract infection, site not specified (principal)
CPT/HCPCS: 81001; 87077; 87086; 87186

== ENCOUNTER 2024-05-11 18:14 | Inpatient (IN) | payer MEDICARE, OTHER ==
[~2024-05-11] VITALS: Ht 172.7 cm; Wt 77.0 kg
[2024-05-11] MEDS ORDERED: Ipratropium Bromide INH 0.02% 0.5 mg/2.5ML Vial INH SCH (18:55)
[2024-05-11] MEDS ORDERED: Albuterol 2.5 MG/3 ML VIAL INH SCH (18:55)
[2024-05-11] MEDS ORDERED: LORazepam 2 MG/ML 1ML Injection IV ONE (19:00)
[2024-05-11 19:09] LABS: BASOPHILS ABSOLUTE AUTO 0.05 K/mm3 (0.00-0.23); BASOPHILS PERCENT AUTO 0 % (0-2); EOSINOPHILS ABSOLUTE AUTO 0.01 K/mm3 (0.00-0.68); EOSINOPHILS PERCENT AUTO 0 % (0-6); Hematocrit 38.1 % (33.0-51.0); Hemoglobin 12.3 g/dL (11.5-16.0); IMMATURE GRAN ABSOLUTE AUTO 0.05 K/mm3 (0.00-0.10); IMMATURE GRAN PERCENT AUTO 0 % (0-1); LYMPHOCYTES ABSOLUTE AUTO 3.68 K/mm3 (0.84-5.20); LYMPHOCYTES PERCENT AUTO 23 % (21-46); MONOCYTES ABSOLUTE AUTO 1.54 K/mm3 (0.16-1.47); MONOCYTES PERCENT AUTO 10 % (4-13); Mean Corpuscular HGB 26.2 pg (26.0-34.0); Mean Corpuscular HGB Conc 32.3 g/dL (31.5-36.5); Mean Corpuscular Volume 81 fL (80-100); Mean Platelet Volume 10.4 fL (9.1-12.4); NEUTROPHILS ABSOLUTE AUTO 10.65 K/mm3 (1.96-9.15); NEUTROPHILS PERCENT AUTO 67 % (41-73); Platelet Count 181 K/mm3 (150-400); RDW Coefficient Variation 16.5 % (11.7-14.2); RDW Standard Deviation 48.2 fL (35.1-46.3); Red Blood Cell Count 4.69 M/mm3 (3.80-5.20); White Blood Cell Count 15.98 K/mm3 (4.00-11.30)
[2024-05-11 19:30] LABS: Albumin, Blood 2.9 g/dL (3.4-5.0); Albumin/Globulin Ratio 0.8 (0.8-1.8); Bilirubin, Total 0.2 mg/dL (0.1-1.0); Bun/Creatinine Ratio 28.2 (12.0-20.0); Calcium, Blood 8.9 mg/dL (8.5-10.1); Creatinine, Blood 0.53 mg/dL (0.40-1.00); Globulin, Blood 3.6 g/dL (2.2-4.0); Potassium, Blood 3.8 mmol/L (3.5-5.5); Total Protein, Blood 6.5 g/dL (6.4-8.2)
[2024-05-11] MEDS ORDERED: LevoFLOXacin 750 MG/D5W 150ML 150 ML IV ONE (19:35)
[2024-05-11] MEDS ORDERED: NS 1,000 ML IV SCH (20:10)
[2024-05-11] MEDS ORDERED: Lactated Ringer's 1,000 ML IV SCH ×3 (21:19→22:55)
[2024-05-11] MEDS ORDERED: Acetaminophen 650 MG Supp PR PRN (21:20)
[2024-05-11] MEDS ORDERED: Acetaminophen 325 MG TABLET PO PRN (21:20)
[2024-05-11] MEDS ORDERED: FLU VACC TS2024-25(6MOS UP)/PF 45 MCG/0.5 ML SYRINGE IM SCH (21:25)
[2024-05-11] MEDS ORDERED: Ipratropium/Albuterol SulF 2.5-0.5MG/3 ML Amp INH PRN (22:25)
[2024-05-11] MEDS ORDERED: HYDROcodone 5-APAP 325 TAB PO PRN (22:30)
[2024-05-11] MEDS ORDERED: MetroNIDAZOLE 500MG/NS 100 ml 100 ML IV SCH (22:40)
[2024-05-11 22:42] LABS: Base Excess Venous 1.2 mmol/L; Bicarbonate Venous 24.9 mmol/L (24.0-30.0); PCO2 Venous 43.2 mmHg (38-42); pH Blood Venous 7.39 (7.34-7.37)
[2024-05-11 22:45] VITALS: BP 109/47
[2024-05-11] MEDS ORDERED: Ondansetron HCl 2 MG / ML 2ML Vial IV PRN (22:50)
[2024-05-11] MEDS ORDERED: ALPRAZolam 0.25 MG Tab PO PRN (22:50)
[2024-05-11 23:00] VITALS: BP 109/43
[2024-05-11] MEDS ORDERED: Lactated Ringer's 1,000 ML IV ONE (23:00)
[2024-05-11 23:15] VITALS: BP 113/46
[2024-05-11 23:30] VITALS: BP 83/58
--- NOTE | 2024-05-11 23:44 | NUR ---
ARRIVAL TO ICU: RECEIVED REPORT FROM FRANKIE DOE AT 2200. PT ARRIVED TO ICU BED 15 VIA GURNEY AT 2220. PT SLID ACROSS TO ICU BED WITH ASSISTANCE. PT VERY ANXIOUS UPON ARRIVAL TRYING TO PULL AT LINES AND WIRES, FREQUENTLY STATING "I WANT TO LEAVE" AND "I HAVE TO GET OUT OF HERE". PT UNABLE TO ANSWER ANY ORIENTATION QUESTIONS EXCEPT FOR HER NAME. PT STATING SHE IS VERY SHORT OF BREATH AND VERY TACHYPNEIC UPON ARRIVAL. PT ARRIVED ON 10L NON-REBREATHER, SWITCHED TO TRACH COLLAR AT 20L, 75% FIO2. PT HAS PATENT STOMA WITH NO TRACH TUBE IN PLACE. PT APPEARS TO BE MORE COMFORTABLE AT THIS TIME. SATS MID TO HIGH 90'S. LUNGS COARSE AND WHEEZY UPON ARRIVAL. RR 20'S-30'S. MICROFILM EQUIPMENT INSPECTOR IN PLACE, SR WITH HR 70'S. SBP 90'S-100'S. MAP 60-65, DR. LAY AWARE. LR STARTED AT 100 ML/HR. INFUSING THROUGH LAC PIV WHICH IS PATENT. PIV TO RAC, PATENT AND SALINE LOCKED. PT HAS NOT YET VOIDED OR HAD A BM. BT ACTIVE IN ALL QUADRANTS. PUPILS EQUAL AND REACTIVE. BED LOW AND LOCKED, CALL LIGHT IN REACH.
[2024-05-11 23:45] VITALS: BP 111/45
--- NOTE | 2024-05-11 23:51 | NUR ---
UPDATE: SPOKE WITH DR. ATKINSON REGARDING PT CODE STATUS. CODE STATUS CONFIRMED TO BE LIMITED CODE WITH MEDICATIONS ONLY.
[2024-05-12] VITALS (63 sets, daily range): BP systolic 93–160; BP diastolic 37–85
[2024-05-12] MEDS ORDERED: Insulin Human Lispro 100 Units/ML 3ML Syringe SC SCH
[2024-05-12] MEDS ORDERED: BUSP10 PO (00:17)
[2024-05-12] MEDS ORDERED: Lactated Ringer's 250 ML IV SCH (00:55)
[2024-05-12] MEDS ORDERED: Lactated Ringer's 250 ML IV ONE ×2 (01:00→01:30)
[2024-05-12] MEDS ORDERED: Lactated Ringer's 500 ML IV ONE (02:25)
--- NOTE | 2024-05-12 02:41 | NUR ---
UPDATE: CALL PLACED TO DR. LAY REGARDING PT BP. MAP RANGING FROM 57-63. ORDER GIVEN FOR 500 ML BOLUS OF LACTATED RINGERS.
[2024-05-12 03:16] LABS: BASOPHILS ABSOLUTE AUTO 0.03 K/mm3 (0.00-0.23); BASOPHILS PERCENT AUTO 0 % (0-2); EOSINOPHILS PERCENT AUTO 0 % (0-6); Hematocrit 29.1 % (33.0-51.0); Hemoglobin 9.4 g/dL (11.5-16.0); IMMATURE GRAN ABSOLUTE AUTO 0.05 K/mm3 (0.00-0.10); IMMATURE GRAN PERCENT AUTO 0 % (0-1); LYMPHOCYTES ABSOLUTE AUTO 1.59 K/mm3 (0.84-5.20); LYMPHOCYTES PERCENT AUTO 14 % (21-46); MONOCYTES ABSOLUTE AUTO 1.43 K/mm3 (0.16-1.47); MONOCYTES PERCENT AUTO 12 % (4-13); Mean Corpuscular HGB Conc 32.3 g/dL (31.5-36.5); Mean Corpuscular Volume 81 fL (80-100); Mean Platelet Volume 9.7 fL (9.1-12.4); NEUTROPHILS PERCENT AUTO 74 % (41-73); Platelet Count 127 K/mm3 (150-400); RDW Coefficient Variation 16.4 % (11.7-14.2); RDW Standard Deviation 47.9 fL (35.1-46.3); Red Blood Cell Count 3.61 M/mm3 (3.80-5.20)
[2024-05-12 03:32] LABS: Albumin, Blood 2.1 g/dL (3.4-5.0); Anion Gap 13 mmol/L (3-11); Blood Urea Nitrogen 14 mg/dL (8-24); Bun/Creatinine Ratio 23.6 (12.0-20.0); CO2, Blood 26 mmol/L (21-32); Calcium, Blood 7.9 mg/dL (8.5-10.1); Chloride, Blood 107 mmol/L (98-108); Creatinine, Blood 0.59 mg/dL (0.40-1.00); Glomerular Filtration Rate 95 (60-); Glucose, Blood 109 mg/dL (70-99); Magnesium, Blood 1.8 mg/dL (1.6-2.4); Phosphorus, Blood 3.2 mg/dL (2.5-4.9); Sodium, Blood 142 mmol/L (136-145)
[2024-05-12] MEDS ORDERED: Lactated Ringer's 500 ML IV SCH (05:00)
[2024-05-12] MEDS ORDERED: Midodrine 5 MG Tab PO SCH (05:00)
--- NOTE | 2024-05-12 05:31 | NUR ---
SHIFT SUMMARY: PT REMAINS VERY CONFUSED AND ANXIOUS T/O THE NIGHT. FREQUENTLY STATING SHE NEEDS TO LEAVE AND SHE CANNOT STAY HERE. A&O TO SELF ONLY. PT ON 10L, 75% ON TRACH COLLAR. RR 20'S-30'S. LUNGS REMAIN COARSE. PT FREQUENTLY COUGHING. NO SECRETIONS NOTED. ATTEMPTED TO DO ORAL CARE ON PT AND SHE STARTED COUGHING UNCONTROLLABLY AND YELLING. SPO2 MID 90'S. KILN CAR UNLOADER IN PLACE, SR WITH HR 60'S. SBP 90'S-100'S. MAP <65. DR. LAY AWARE. LR INFUSING AT 100 ML/HR. PIVS INTACT AND PATENT. DENIES CHEST PAIN/PRESSURE. ENDORSES SOB. PT MORE EDEMETOUS IN THE UPPER EXTREMETIES THIS MORNING. AFEBRILE. PUREWICK IN PLACE, SUCTIONING BRANDON COLORED URINE. NO BM THIS SHIFT. BED LOW AND LOCKED.
--- NOTE | 2024-05-12 05:45 | NUR ---
UPDATE: CALL PLACED TO DR. LAY REGARDING BP. ADDITONAL BOLUS DOSE OF 250 ML OF LR GIVEN WITH NO IMPROVEMENT TO BP. ORDER GIVEN TO START PT ON PERIPHERAL LEVOPHED AND CHANGE TO ICU STATUS.
[2024-05-12] MEDS ORDERED: NS 250 ML IV PRN (05:55)
[2024-05-12] MEDS ORDERED: Omeprazole 20 MG CapCR PO SCH (06:00)
[2024-05-12] MEDS ORDERED: Levothyroxine Sodium 0.05 MG Tab PO SCH (06:00)
[2024-05-12] MEDS ORDERED: FentaNYL Citrate 50 MCG/ML 2 ML Injection IV PRN (08:20)
--- NOTE | 2024-05-12 08:27 | NUR ---
AM NOTE... ASSUMED CARE OF PT AT 0700, PT IS A&O TO HERSELF AND FOLLOWING DIRECTIONS. PT IS ON LEVOPHED AT 4MCG/MIN TO KEEP MAPS>65. SHE IS IN SR IN THE 60'S. PT HAS NONPITTING EDEMA TO HER BUE AND 1+ TO HER BLE. L/S DIM T/O. OLD TRACH STOMA IS PATENT WITH TRACH COLLAR, TRACH COLLAR IS IS 10L AND 75% WITH O2 SATS>90%. L/S DIM T/O. PURWICK IS IN PLACE TO LIS. BEDSIDE SWALLOW EVAL WAS DONE BY THIS RN PT STARTED COUGHING WITH 1 SIP OF WATER, PT MADE NPO AND SPEECH EVAL PLACED AFTER SPEAKING WITH THE PROVIDER. WILL CONTINUE TO MONITOR.
[2024-05-12] MEDS ORDERED: NS IV SCH (08:30)
[2024-05-12] MEDS ORDERED: VALPROATE SODIUM IV SCH (08:30)
[2024-05-12] MEDS ORDERED: Atorvastatin 40 MG Tab PO SCH (09:00)
[2024-05-12] MEDS ORDERED: BusPIRone HCl 10 MG Tab PO SCH (09:00)
[2024-05-12] MEDS ORDERED: AmLODIPine Besylate 5 MG Tab PO SCH (09:00)
[2024-05-12] MEDS ORDERED: Furosemide 40 MG Tab PO SCH (09:00)
[2024-05-12] MEDS ORDERED: Enoxaparin 40 MG/0.4 ML SYR SC SCH (09:00)
[2024-05-12] MEDS ORDERED: Lactobacil 2-S.Thermo-Bifido 1 1 Cap PO SCH (09:00)
[2024-05-12] MEDS ORDERED: Divalproex Sodium 125 MG CAP PO SCH (09:00)
[2024-05-12] MEDS ORDERED: DULoxetine HCL 30 MG Cap DR PO SCH (09:00)
[2024-05-12] MEDS ORDERED: Modafinil 200 MG Tab PO SCH (09:00)
[2024-05-12] MEDS ORDERED: Clopidogrel Bisulfate 75 MG Tab PO SCH (09:00)
[2024-05-12] MEDS ORDERED: Aspirin 81 MG TabEC PO SCH (09:00)
[2024-05-12] MEDS ORDERED: Folic Acid 1 MG TAB PO SCH (09:00)
[2024-05-12] MEDS ORDERED: Cholecalciferol 1000 Unit Tablet (=25MCG) PO SCH (09:00)
[2024-05-12] MEDS ORDERED: Cyanocobalamin 500 MCG Tab PO SCH (09:00)
[2024-05-12 16:38] LABS: Source, Urine Straight Cath
[2024-05-12 16:41] LABS: Appearance, Urine Clear (Clear); Bilirubin, Urine Neg (Neg); Blood, Urine 1+ (Neg); Color, Urine Yellow (P-Yellow); Glucose Qualitative, Urine Neg (Neg); Ketones, Urine Neg (Neg); Leukocyte Esterase, Urine 3+ (Neg); Nitrite, Urine Neg (Neg); Protein, Urine Neg (Neg); Urobilinogen, Urine NORM (Normal); pH, Urine 6.5 (5.0-8.0)
[2024-05-12 16:47] LABS: Red Blood Cells, Urine 0-2 /hpf (0-2); White Blood Cells, Urine 25-50 /hpf (0-5)
[2024-05-12 16:48] LABS: Bacteria Few /hpf; Squamous Epithelial Cells Few /hpf (Few); Transitional Epithelial Cells Few /hpf (0-Rare)
--- NOTE | 2024-05-12 17:17 | NUR ---
Spiritual Care Visit. Pt is awake in bed. This chaplai was aware that her communication is limited, yet the pt. welcomed prayer. Prayed with Pt. The Pt. displayed evidence of non-verbal gratitude, and welcomed this drinking water technician to return.
--- NOTE | 2024-05-12 17:29 | NUR ---
SHIFT SUMMARY... NO ACUTE NEGATIVE CHANGES NOTED THIS SHIFT. PT CONTINUES ON THE TRACH COLLAR WITH 30L AND 20-30% WITH O2 SATS>90% L/S CONTINUE TO BE DIM T/O. LEVOPHED DRIP HAS BEEN OFF SINCE 1115. PURWICK IN PLACE AND CHANGED/REPOSITIONED SEVERAL TIMES THIS SHIFT. PT HAS NOT HAD A BM THIS SHIFT. VENOUS DUPLEX WAS DONE AT THE BEDSIDE RESULTS PENDING AT THIS TIME. CALL LIGHT IN REACH WILL CONTINUE TO MONITOR UNTIL REPORT IS GIVEN TO ONCOMING RN.
[2024-05-12] MEDS ORDERED: LevoFLOXacin 750 MG/D5W 150ML 150 ML IV SCH (18:00)
[2024-05-13] VITALS (12 sets, daily range): BP systolic 100–135; BP diastolic 41–96
[2024-05-13 03:40] LABS: BASOPHILS ABSOLUTE AUTO 0.03 K/mm3 (0.00-0.23); BASOPHILS PERCENT AUTO 0 % (0-2); EOSINOPHILS ABSOLUTE AUTO 0.07 K/mm3 (0.00-0.68); EOSINOPHILS PERCENT AUTO 1 % (0-6); Hematocrit 29.8 % (33.0-51.0); Hemoglobin 9.5 g/dL (11.5-16.0); IMMATURE GRAN ABSOLUTE AUTO 0.01 K/mm3 (0.00-0.10); IMMATURE GRAN PERCENT AUTO 0 % (0-1); LYMPHOCYTES PERCENT AUTO 29 % (21-46); MONOCYTES ABSOLUTE AUTO 1.08 K/mm3 (0.16-1.47); MONOCYTES PERCENT AUTO 12 % (4-13); Mean Corpuscular HGB Conc 31.9 g/dL (31.5-36.5); Mean Corpuscular Volume 81 fL (80-100); Mean Platelet Volume 10.9 fL (9.1-12.4); NEUTROPHILS ABSOLUTE AUTO 5.28 K/mm3 (1.96-9.15); NEUTROPHILS PERCENT AUTO 58 % (41-73); Platelet Count 145 K/mm3 (150-400); RDW Coefficient Variation 16.7 % (11.7-14.2); RDW Standard Deviation 49.5 fL (35.1-46.3); Red Blood Cell Count 3.66 M/mm3 (3.80-5.20); White Blood Cell Count 9.17 K/mm3 (4.00-11.30)
[2024-05-13 04:06] LABS: Bun/Creatinine Ratio 21.6 (12.0-20.0); Calcium, Blood 7.8 mg/dL (8.5-10.1); Creatinine, Blood 0.56 mg/dL (0.40-1.00); Potassium, Blood 3.8 mmol/L (3.5-5.5)
--- NOTE | 2024-05-13 06:45 | NUR ---
SHIFT SUMMARY NO ACUTE CHANGES DURING NOC. O2 SATS STABLE WITH HEATED HIGH FLOW TO TRACH COLLAR- 30L, 32% FIO2. RESPIRATIONS EVEN AND UNLABORED. AFEBRILE. VSS. TOLERATED SIPS OF WATER AND MEDICATIONS GIVEN WITH PUDDING. PUREWICK IN PLACE- BRANDON URINE. WILL REPORT TO ONCOMING RN WHEN AVAILABLE.
--- NOTE | 2024-05-13 18:04 | NUR ---
SUMMARY PT A/O TO PERSON AND PLACE TODAY. FOLLOWS COMMANDS. SOME MOMENTS SHE IS MORE CLEAR THAN OTHERS. AT ONE POINT TODAY SHE INSISTED ON BEING PUT IN BED BUT SHE WAS ALREADY IN BED. UNABLE TO CONVINCE PT THAT SHE WAS ALREADY IN BED. EATING SOME OF HER MEALS. DID BETTER WITH SPEECH THERAPY TODAY AND DIET WAS ADVANCED. UP TO RECLINER FOR A COUPLE HOURS TODAY WITH LIFT. TRACH COLLAR IN PLACE WITH AIRVO, SPUTUM SPECIMEN SENT. PCU STATUS.
--- NOTE | 2024-05-13 19:33 | NUR ---
ASSUMED CARE OF PT AT 1900. REPORT RECEIVED AT BEDSIDE. PT PRESENTS IN BED. TRACH COLLAR TO OS FROM PREVIOUS TRACH. PT DEMONSTRATES THAT SHE IS VERY FEARFUL THAT SHE IS FALLING OUT OF BED. BED POSITIONED PER HER LIKING AND COMFORT. MUCH REASSURANCE GIVEN TO ENSURE PT UNDERSTANDS THAT SHE IS SAFE. WILL REVIEW CHART AND PLAN OF CARE FOR THIS PT.
--- NOTE | 2024-05-13 21:41 | NUR ---
PT HAS BEEN VERY ANXIOUS. FEELS IF SHE IS FALLING OUT OF BED. HAVE REASSURED PT FREQUENTLY. REPOSITIONED. HAVE MEDICATED PT WITH 0.25 MG XANAX WITH VERY GOOD RESULTS. PT CURRENTLY RESTING IN BED. ABLE TO TAKE HER MEDICATIONS WITH YOUGART.
--- NOTE | 2024-05-13 22:43 | NUR ---
PT BOOSTED IN BED. HAS BEEN ABLE TO USE BED CONTROLS TO MOVE HERSELF ABOUT. STILL CALLS OUT FREQUENTLY TO HAVE STAFF DO THIS FOR HER. REASSURANCE GIVEN.
[2024-05-14] VITALS (8 sets, daily range): BP systolic 94–121; BP diastolic 42–84
[2024-05-14 03:42] LABS: Hematocrit 30.4 % (33.0-51.0); Hemoglobin 9.6 g/dL (11.5-16.0); Mean Corpuscular HGB 25.8 pg (26.0-34.0); Mean Corpuscular HGB Conc 31.6 g/dL (31.5-36.5); Mean Corpuscular Volume 82 fL (80-100); Mean Platelet Volume 9.5 fL (9.1-12.4); Platelet Count 141 K/mm3 (150-400); RDW Coefficient Variation 16.9 % (11.7-14.2); Red Blood Cell Count 3.72 M/mm3 (3.80-5.20)
[2024-05-14 03:57] LABS: Anion Gap 9 mmol/L (3-11); Blood Urea Nitrogen 12 mg/dL (8-24); Bun/Creatinine Ratio 21.1 (12.0-20.0); CO2, Blood 28 mmol/L (21-32); Calcium, Blood 8.2 mg/dL (8.5-10.1); Chloride, Blood 108 mmol/L (98-108); Creatinine, Blood 0.57 mg/dL (0.40-1.00); Glomerular Filtration Rate 96 (60-); Glucose, Blood 87 mg/dL (70-99); Magnesium, Blood 1.9 mg/dL (1.6-2.4); Phosphorus, Blood 3.4 mg/dL (2.5-4.9); Potassium, Blood 4.1 mmol/L (3.5-5.5); Sodium, Blood 141 mmol/L (136-145)
--- NOTE | 2024-05-14 07:00 | NUR ---
ASSUMPTION OF CARE PT IS AWAKE DURING BEDSIDE REPORT, PARTICIPATES IN CONVERSATION. REPORTS NOT SLEEPING WELL OVERNIGHT AND C/O BACK PAIN. SHE IS A&OX3. SHE IS ON AIRVO 30L/29%. LUNGS ARE DIMINISHED THROUGHOUT. SINUS EVER ON MONITOR. MAP >65. PUREWICK IN PLACE WITH BRANDON URINE. BED IN LOW POSITION, CALL LIGHT WITHIN REACH.
--- NOTE | 2024-05-14 09:39 | NUR ---
PRESSURE INJURY - DR ALLEN NOTIFIED Assisted with bedpan, bedbath, linen change. Noted nonblanchable redness with scabbing to right lower sacrum. Site photographed. Cleansed. Dressed with sacral border-foam dressing. Call placed to Dr Allen to notify.
[2024-05-14] MEDS ORDERED: Divalproex Sodium 500 MG TABLET.DR PO SCH (14:00)
--- NOTE | 2024-05-14 16:16 | NUR ---
HOME O2 CALLED [facility] TO VERIFY PT'S HOME O2 REQUIREMENTS. RN AT FACILITY REPORTS SHE IS ON RA DURING THE DAY AND 2L VIA NC AT NIGHT. SHE STS THEY DO NOT USE A TRACH COLLAR. SHE ALSO STS SHE WILL BE BY Thursday FOR EVAL REGARDING POSSIBLE DISCHARGE. RT NOTIFIED.
--- NOTE | 2024-05-14 18:30 | NUR ---
SHIFT SUMMARY PT IS A&OX3, PARTICIPATES IN CONVERSATION. HER ANXIETY HAS DECREASED THIS EVENING. SHE REMAINS ON AIRVO VIA TRACH AT 20L/29%. LUNGS ARE DIMINISHED THROUGHOUT. SINUS ON MONITOR WITH RATE IN 50S-60S. BP SOFT WITH MAP HIGH 50S-60S, RECEIVING MIDODRINE. PT HAS DECREASED APPETITE BUT WAS ABLE TO EAT MORE OF HER DINNER. SHE HAD 1 SMALL BM THIS SHIFT. PUREWICK IN PLACE DRAINING BRANDON URINE. BED IN LOW POSITION, CALL LIGHT WITHIN REACH.
--- NOTE | 2024-05-14 21:45 | NUR ---
ASSUMPTION OF CARE ASSUMED CARE OF PATIENT AT 1900, BEDSIDE SHIFT REPORT RECEIVED FROM JORGE RN. PT RESTING IN BED, SLEEPING BUT AROUSABLE. PT ORIENTED X3, UNSURE OF YEAR. PT VERY ANXIOUS AT TIMES, MEDICATED PER EMAR. PT COMMUNICATES APPROPRIATELY, FOLLOWS DIRECTION WHEN PROMPTED. PT IS WEAK, MOVES EXTREMITIES EQUALLY BILATERALLY. PT FOREGETFUL, EASILY REORIENTED. HR 40-50'S SINUS, SBP 100-120'S. PT HAS STOMA IN PLACE WITH TRACH COLLAR. AIRVO IN PLACE 20L, 30%, OXYGEN SATURATION >94%. ABDOMEN SOFT, TENDER ON PALPATION, BOWEL TONES ACTIVE IN ALL FOUR QUADRANTS. PUREWICK IN PLACE WITH BRANDON COLORED OUTPUT. PIV IN PLACE TO RAC AND RFA, NS TKO INFUSING. BED IN LOWEST POSITON, CALL LIGHT WITHIN REACH, CARE CONTINUES.
[2024-05-15] VITALS: BP 124/83
[2024-05-15 04:01] VITALS: BP 107/56
--- NOTE | 2024-05-15 04:57 | NUR ---
SHIFT SUMMARY NO ACUTE CHANGES THIS SHIFT. PT CONTINUES TO REST IN BED SLEEPING BUT AROUSBALE. PT FORGETFULL, EASILY REORIENTED. PT VERY ANXIOUS AT TIMES, MEDICATED PER EMAR. PT FOLLOWS DIRECITON WHEN PROMPTED AND IS ABLE TO MAKE HER NEEDS KNOWN. PT WEAK, MOVES EXTREMITIES EQUALLY BILATERALLY. HR 50-60'S SINUS, MAP >65. PT HAS STOMA WITH TRACH COLLAR IN PLACE, 20L 39%, OXYGEN SATURATION >94%. ABDOMEN SOFT, BOWEL TONES ACTIVE IN ALL FOUR QUADRANTS. PT HAS PUREWICK IN PLACE WITH BRANDON COLORED OUTPUT. PIV IN PLACE TO RAC AND RFA, NS TKO INFUSING. BED IN LOWEST POSITON, CALL LIGHT WITHIN REACH, CARE CONTINUES.
--- NOTE | 2024-05-15 07:00 | NUR ---
ASSUME CARE: I have assumed care of this patient.
[2024-05-15 08:00] VITALS: BP 119/51
[2024-05-15] MEDS ORDERED: Atorvastatin 40 MG Tab PO SCH (09:00)
[2024-05-15 14:16] VITALS: BP 135/49
[2024-05-15] MEDS ORDERED: Midodrine 5 MG Tab PO PRN (16:20)
[2024-05-15] MEDS ORDERED: Dextrose 50% 50 ML Syringe IV PRN (16:25)
--- NOTE | 2024-05-15 18:47 | NUR ---
SHIFT SUMMARY: Pt up to chair for several hours today. She was transitioned to home dose of oxygen which is 2L via NC. Trach stoma was cleansed with wound spray and gauze during bedbath. Small scab on coccyx, foam dressing changed. Pt reports low back pain. She has been getting PRN norco which she reports taking q4 hours at home. Pt's brother given update via telephone.
[2024-05-15 19:13] VITALS: BP 158/51
[2024-05-15 19:17] VITALS: BP 158/51
--- NOTE | 2024-05-15 20:28 | NUR ---
ASSUMPTION OF CARE ASSUMED CARE OF PATIENT AT 1900, BEDSIDE SHIFT REPORT RECEIVED FROM JORGE RN. PT RESTING IN BED, ALERT, ABLE TO STATE NAME, , AND PLACE, UNSURE OF YEAR. PT ANSWERS QUESTIONS APPROPRIATELY FOLLOWS DIRECTION WHEN PROMPTED AND IS ABLE TO MAKE HER NEEDS KNOWN. PT MOVES EXTREMITIES EQUALLY BILATERALLY. PT ANXIOUS, STATES THAT SHE FEELS LIKE SHE IS GOING TO FALL WHILE LAYING IN BED AND WITH REPOSITIONING. HR 50'S SINUS, MAP >65. PT WITH STOMA, ON 2L VIA NC, OXYGEN SATURATION >95%. ABDOMEN SOFT, BOWEL TONE ACTIVE IN ALL FOUR QUADRANTS. PUREWICK IN PLACE DRAINING YELLOW URINE. PIV IN PLACE TO RAC AND RFA, NS TKO INFUSING. BED IN LOWEST POSITION, CALL LIGHT WIHTIN REACH, CARE CONTINUES.
--- NOTE | 2024-05-16 00:01 | NUR ---
TRANSFER TO MEDICAL FLOOR REPORT GIVEN TO MEDICAL FLOOR NURSE, PT TRANSFERED TO MEDICAL FLOOR VIA HOSPITAL BED, PT ALERT, VITAL SIGNS STABLE ON TRANSFER.
[2024-05-16 02:15] VITALS: BP 117/54
[2024-05-16 07:00] VITALS: BP 106/57
[2024-05-16 15:05] VITALS: BP 125/93
--- NOTE | 2024-05-16 17:23 | NUR ---
SHIFT SUMMARY: PT ORIENTED TO SELF AND PLACE. NURSE FROM [facility] ARRIVED EARLY THIS AM TO REASSESS PT FOR RETURN TO FACILITY. PT ON 2L NC ATTEMPTING TO WEAN O2. MAINTAINING SATS >95%. PT/OT/ST IN TO SEE PT THIS SHIFT. PT IS A LIFT AT THIS TIME D/T ANXIETY AND UNABLE TO FOLLOW DIRECTIONS WELL. MEDICATED FOR PAIN AND ANXIETY TWICE THIS SHIFT. ROTATING PT Q2 D/T PI ON BUTTOCK. PT HOPEFUL TO D/C BACK TO LIVING FACILITY "SOON." CALL LIGHT IN REACH. BED IN LOWEST POSITION.
[2024-05-16 19:17] VITALS: BP 112/57
[2024-05-17 02:05] VITALS: BP 111/56
--- NOTE | 2024-05-17 06:34 | NUR ---
PT APPEARED TO SLEEP THROUGH THE NIGHT TOOK HS MEDS REPOSITIONED Q 2 ABLE TO MAKE NEEDS KNOWN BED IN LOW POSITION, RAILS TIMES TWO, CALL LIGHT WITHIN REACH.
[2024-05-17 07:33] VITALS: BP 126/52
[2024-05-17 11:38] VITALS: BP 116/54
[2024-05-17 15:51] VITALS: BP 103/55
--- NOTE | 2024-05-17 17:27 | NUR ---
SHIFT SUMMARY PT CONT LEVEL OF CARE. PT IS A&O TO PERSON AND PLACE AND NOTED TO HAVE FORGETFULNESS. PT IS PLEASANT WITH STAFF. PT NOTED TO HAVE ST ELEVATION ON TELE AND PHYSICIAN NOTIFIED AND ORDER EKG AND TROPONIN. PHYSICIAN STATED NO NOTED CONCERNS WITH THE RESULTS. PT TO HAVE A SLEEP STUDY DONE THIS SHIFT AND PLANS TO DC TOMORROW.
[2024-05-17 19:26] VITALS: BP 120/70
[2024-05-18] MEDS ORDERED: Melatonin 5 MG Tablet PO SCH (00:15)
[2024-05-18 03:07] VITALS: BP 120/64
--- NOTE | 2024-05-18 05:56 | NUR ---
SHIFT SUMMARY NOC PT A/O X 2-3. PLEASANT AND COOPERATIVE WITH CARE. VSS. SLEEP STUDY BEING CONDUCTED WITH HOME O2 EVALUATION LATER TODAY BEFORE PT DISCHARGES BACK TO [facility]. PT Q6H CBG 0000 88 AND 81 PT GIVEN SNACK ALONG WITH DOSE OF MELATONIN FOR SLEEP. PT ON TELE SINUS EVER/RHYTHM IN HIGH 50'S AND 60'S. URINE OUTPUT 100 ML IN CANISTER AND ATTENDS SOAKED, BLADDER SCAN SHOWED 376 ML HOLDING. PT NECK/BACK PAIN MANAGED PER EMAR. PT HAS BEEN ON RA DURING SHIFT SPO2 >90%. PT CURRENTLY RESTING WITH BED ALARM ON, BED IN LOWEST POSITION, AND CALL LIGHT WITHIN REACH.
[2024-05-18 07:36] VITALS: BP 105/55
--- NOTE | 2024-05-18 11:23 | NUR ---
Spiritual Care Visit. Pt. is awake and welcomes my visit. Pt. verbalized that she remembered angie tilley when she was in ICU. COnsidered maters of ariadna and belief. Pt. is unsettled by the fact that she doesn't know if her health is improving. Seek to normalize the Pt. experience. Prayed for Pt. Pt. verbalized gratitude for the spiritual care visit.
[2024-05-18] MEDS ORDERED: Polyethylene Glycol 3350 17 gm PO SCH (13:00)
[2024-05-18 15:49] VITALS: BP 118/55
[2024-05-18] MEDS ORDERED: Bisacodyl 10 MG Supp PR STA (17:50)
--- NOTE | 2024-05-18 19:49 | NUR ---
PT STATES THAT SHE DOES NOT FEEL WELL THROUGHOUT THE SHIFT. PLAN WAS TO GO HOME TODAY HOWEVER PT HAS NOT HAD BM IN SEVERAL DAYS. PT NOTED TO BE RETAINING URINE. STRAIGHT CATHETER ORDERED PER DR. PAL. BLADDER SCAN OF POST VOID RESIDULE 330. 50O CC WITH CATH. PLAN NOW IS TO STAY TONIGHT AND WORK ON HAVING BM. PT REFUSED SUPPOSITORY. MIRALAX GIVEN PER EMAR. PT REPORTS BACK PAIN, TREATED PER EMAR. NO BM ON DAY SHIFT. ABLE TO MAKE NEEDS KNOWN. R/A. TRACH OPENNING CLEANED BY RT.
[2024-05-18 20:04] VITALS: BP 119/52
--- NOTE | 2024-05-19 04:16 | NUR ---
SHIFT SUMMARY PT EXTREMELY FEARFUL OF FALLING OUT OF BED. HAS BOUTS OF HIGH ANXIETY WHEN HAVING ATTENDS CHANGED OR BEING REPOSITIONED. REDIRECTING, REMINDING HER SHE IS SAFE HAS BEEN HELPFUL IN MAINTAINING LOWER ANXIETY LEVEL WITH CHANGES/REPOSITIONING. PT HAS BEEN PLEASANT AND COOPERATIVE WITH CARE. WILL CONTINUE TO MONITOR.
[2024-05-19] MEDS ORDERED: Pantoprazole Sodium 40 MG Tab PO SCH (06:00)
[2024-05-19 07:05] VITALS: BP 133/62
[2024-05-19] MEDS ORDERED: Lactulose 20 GM/30 ML UDC PO STA (07:43)
[2024-05-19 14:53] VITALS: BP 146/134
[2024-05-19 14:54] VITALS: BP 126/58
[2024-05-19] MEDS ORDERED: Sod Phosphate/Sod Biphosphate 132 ML BTL PR ONE (15:05)
--- NOTE | 2024-05-19 19:20 | NUR ---
pt voiding, post void bladder scan 197. enema administered, hard stool passed. pt reports back pain, treated per emar. r/a. plan to return to [facility] tomorrow
[2024-05-19 19:45] VITALS: BP 110/63
[2024-05-20 03:08] VITALS: BP 131/54
--- NOTE | 2024-05-20 04:28 | NUR ---
SHIFT SUMMARY PT REMAINS FEARFUL OF FALLING OUT OF BED. CONFUSED THINKING SHE IS NOT ALREADY IN BED. FLOATED HIPS AND PROPPED PILLOWS AROUND HER FOR SECURITY. SLEEPING PEACEFULLY AT THIS TIME. WILL CONTINUE TO MONITOR.
[2024-05-20 07:11] VITALS: BP 110/53
--- NOTE | 2024-05-20 15:25 | NUR ---
PT RESTING QUIETLY AWAKE DURING SHIFT REPORT. PT NEEDING REPOSITIONED RIGHT AWAY. PT ALSO INCONTINENT OF URINE; CLEANED AND CHANGED. REPOSITIONED, FLUIDS PROVIDED. IV ABX GIVEN PER EMAR. DR ALLEN IN TO SEE PT. PT ABLE TO D/C BACK TO [facility]. IV LEVAQUIN GIVEN PRIOR TO TX TRAINMASTER. PT ASSISTED TO W/C TRANSPORT VIA LIFT. NO BELONGINGS CAME WITH PT.
== END 2024-05-20 13:23 | disposition home health service (06) | DRG 871 ==
LOC: ER 18:14 → ICUE 21:18 → MEDS 05-16 00:05 → ENPENDDIS 05-20 10:58 → MEDS 05-20 13:23
PROVIDERS: Family Medicine; Internal Medicine; Internal Medicine Critical Care Medicine; Student in an Organized Health Care Education/Training Program; ADMIT Student in an Organized Health Care Education/Training Program
PROC: 3E033XZ Introduction of Vasopressor into Peripheral Vein, Percutaneous Approach (ICD-10-PCS; principal; 2024-05-11)
PROC: 3E03329 Introduction of Other Anti-infective into Peripheral Vein, Percutaneous Approach (ICD-10-PCS; 2024-05-11)
PROC: 5A0935A Assistance with Respiratory Ventilation, Less than 24 Consecutive Hours, High Flow/Velocity Cannula (ICD-10-PCS; 2024-05-14)
DX: A41.9 Sepsis, unspecified organism (principal); G93.41 Metabolic encephalopathy; J15.1 Pneumonia due to Pseudomonas; R65.21 Severe sepsis with septic shock; J96.21 Acute and chronic respiratory failure with hypoxia; J44.0 Chronic obstructive pulmonary disease with (acute) lower respiratory infection; F01.50 Vascular dementia, unspecified severity, without behavioral disturbance, psychotic disturbance, mood disturbance, and anxiety; Z66 Do not resuscitate; E03.9 Hypothyroidism, unspecified; E11.9 Type 2 diabetes mellitus without complications; I25.10 Atherosclerotic heart disease of native coronary artery without angina pectoris; I10 Essential (primary) hypertension; K21.9 Gastro-esophageal reflux disease without esophagitis; F32.A Depression, unspecified; F41.9 Anxiety disorder, unspecified; L89.151 Pressure ulcer of sacral region, stage 1; G47.33 Obstructive sleep apnea (adult) (pediatric); R33.9 Retention of urine, unspecified; K59.00 Constipation, unspecified; M79.7 Fibromyalgia; G25.0 Essential tremor; G40.909 Epilepsy, unspecified, not intractable, without status epilepticus; Z98.890 Other specified postprocedural states; J39.8 Other specified diseases of upper respiratory tract; Z90.49 Acquired absence of other specified parts of digestive tract; Z93.0 Tracheostomy status; Z88.2 Allergy status to sulfonamides; Z88.1 Allergy status to other antibiotic agents; Z79.82 Long term (current) use of aspirin; Z79.890 Hormone replacement therapy; Z79.899 Other long term (current) drug therapy; Z98.84 Bariatric surgery status; Z90.710 Acquired absence of both cervix and uterus; Z79.4 Long term (current) use of insulin; Z86.73 Personal history of transient ischemic attack (TIA), and cerebral infarction without residual deficits; Z87.891 Personal history of nicotine dependence
CPT/HCPCS: 31720; 36415; 51701; 71045; 71260; 74230; 80048; 80053; 80069; 81001; 82803; 82947; 83605; 83735; 83880; 84100; 84145; 84484; 85025; 85027; 87040; 87070; 87077; 87086; 87186; 87205; 92526; 92610; 92611; 93005; 93010; 93970; 94640; 94644; 94664; 94760; 94761; 94762; 96365; 96375; 97162; 97166; 97530; 99285-25; A9270; J1650; J1956; J2060; J3010; J7030; J7050; J7060; J7120; Q9967

== ENCOUNTER 2024-11-19 20:46 | Observation (INO) | payer MEDICARE, OTHER ==
[~2024-11-19] VITALS: Ht 172.7 cm; Wt 74.2 kg
[~2024-11-19 20:46] MED LIST changes: +BUSP10 PO
[2024-11-19 21:06] LABS: BASOPHILS ABSOLUTE AUTO 0.05 K/mm3 (0.00-0.23); BASOPHILS PERCENT AUTO 1 % (0-2); EOSINOPHILS ABSOLUTE AUTO 0.09 K/mm3 (0.00-0.68); EOSINOPHILS PERCENT AUTO 2 % (0-6); Hematocrit 32.5 % (33.0-51.0); Hemoglobin 10.3 g/dL (11.5-16.0); IMMATURE GRAN ABSOLUTE AUTO 0.01 K/mm3 (0.00-0.10); IMMATURE GRAN PERCENT AUTO 0 % (0-1); LYMPHOCYTES ABSOLUTE AUTO 3.12 K/mm3 (0.84-5.20); LYMPHOCYTES PERCENT AUTO 51 % (21-46); MONOCYTES PERCENT AUTO 10 % (4-13); Mean Corpuscular HGB 25.2 pg (26.0-34.0); Mean Corpuscular HGB Conc 31.7 g/dL (31.5-36.5); Mean Corpuscular Volume 80 fL (80-100); Mean Platelet Volume 10.3 fL (9.1-12.4); NEUTROPHILS ABSOLUTE AUTO 2.31 K/mm3 (1.96-9.15); NEUTROPHILS PERCENT AUTO 37 % (41-73); Platelet Count 171 K/mm3 (150-400); RDW Coefficient Variation 17.2 % (11.7-14.2); RDW Standard Deviation 49.5 fL (35.1-46.3); Red Blood Cell Count 4.08 M/mm3 (3.80-5.20); White Blood Cell Count 6.18 K/mm3 (4.00-11.30)
[2024-11-19 21:25] LABS: Albumin, Blood 2.6 g/dL (3.4-5.0); Bilirubin, Total 0.2 mg/dL (0.1-1.0); Bun/Creatinine Ratio 33.4 (12.0-20.0); Calcium, Blood 7.8 mg/dL (8.5-10.1); Creatinine, Blood 0.66 mg/dL (0.40-1.00); Globulin, Blood 2.7 g/dL (2.2-4.0); Magnesium, Blood 2.1 mg/dL (1.6-2.4); Potassium, Blood 3.7 mmol/L (3.5-5.5); Total Protein, Blood 5.3 g/dL (6.4-8.2)
[2024-11-19] MEDS ORDERED: Ondansetron HCl 2 MG / ML 2ML Vial IV PRN (23:00)
[2024-11-19] MEDS ORDERED: NS 1,000 ML IV SCH (23:00)
[2024-11-19] MEDS ORDERED: Enoxaparin 40 MG/0.4 ML SYR SC SCH (23:00)
[2024-11-20 00:06] VITALS: BP 135/64
--- NOTE | 2024-11-20 00:20 | NUR ---
ADMISSION REPORT RECEIVED FROM ER NURSE. PATIENT ARRIVES TO PCU 10, MOVED OVER TO PCU BED WITH ASSITANCE OF STAFF. PATIENT MINIMALLY RESPONSIVE. WILL WAKE WITH LOUD VERBAL STIMULI BUT WILL NOT STAY AWAKE LONGER THAN 10 SECONDS. PER ER NURSE, PATIENT WAS MORE ALERT IN ER BUT HAS PROGRESSIVELY GOTTEN WORSE. RECTAL TEMP PROBE PLACED, TEMP 96.7. PATIENT ON 4L NASAL CANNULA, ETCO2 MONITOR ON, BUT PATIENT PRESENTING WITH ESTABLISHED TRACH STOMA. BANDAGE OVER STOMA. CANNULA AND ETC02 MONITOR PLACED OVER STOMA. RT CALLED TO BEDSIDE. JEREMI ON FRONT OF CHART. DR. LU [facility]. STAT VBG ORDERED.
[2024-11-20 00:48] LABS: Base Excess Venous 7.7 mmol/L; Bicarbonate Venous 30.5 mmol/L (24.0-30.0); pH Blood Venous 7.41 (7.34-7.37)
--- NOTE | 2024-11-20 01:17 | NUR ---
POISON CONTROL UPDATED POISON CONTROL REGARDING PT STATUS/LABS/VITALS/ETC. POISON CONTROL AGENT SUGGESTED CONTIONUED QTC MONITORING AND TO MAINTAIN SERUM POTASSIUM >4.0 AND MAGNESIUM >2.0. UPDATED PROVIDER REGARDING THESE SUGGESTIONS.
[2024-11-20] MEDS ORDERED: Potassium Chloride 40 MEQ in NS 250 ML IV ONE (01:35)
[2024-11-20] MEDS ORDERED: DULCOLAX400 MG/5 M PO (01:51)
[2024-11-20] MEDS ORDERED: PANT20 PO (01:55)
[2024-11-20 04:20] LABS: Base Excess Venous 7.6 mmol/L; Bicarbonate Venous 30.5 mmol/L (24.0-30.0); pH Blood Venous 7.44 (7.34-7.37)
[2024-11-20 04:24] LABS: BASOPHILS ABSOLUTE AUTO 0.05 K/mm3 (0.00-0.23); BASOPHILS PERCENT AUTO 1 % (0-2); EOSINOPHILS ABSOLUTE AUTO 0.07 K/mm3 (0.00-0.68); EOSINOPHILS PERCENT AUTO 1 % (0-6); Hematocrit 31.4 % (33.0-51.0); Hemoglobin 9.9 g/dL (11.5-16.0); IMMATURE GRAN ABSOLUTE AUTO 0.01 K/mm3 (0.00-0.10); IMMATURE GRAN PERCENT AUTO 0 % (0-1); LYMPHOCYTES ABSOLUTE AUTO 3.11 K/mm3 (0.84-5.20); LYMPHOCYTES PERCENT AUTO 51 % (21-46); MONOCYTES ABSOLUTE AUTO 0.57 K/mm3 (0.16-1.47); MONOCYTES PERCENT AUTO 9 % (4-13); Mean Corpuscular HGB 25.4 pg (26.0-34.0); Mean Corpuscular HGB Conc 31.5 g/dL (31.5-36.5); Mean Corpuscular Volume 81 fL (80-100); Mean Platelet Volume 9.7 fL (9.1-12.4); NEUTROPHILS ABSOLUTE AUTO 2.27 K/mm3 (1.96-9.15); NEUTROPHILS PERCENT AUTO 37 % (41-73); Platelet Count 159 K/mm3 (150-400); RDW Coefficient Variation 17.4 % (11.7-14.2); RDW Standard Deviation 50.7 fL (35.1-46.3); White Blood Cell Count 6.08 K/mm3 (4.00-11.30)
[2024-11-20 04:30] VITALS: BP 145/58
[2024-11-20 04:46] LABS: Albumin, Blood 2.4 g/dL (3.4-5.0); Albumin/Globulin Ratio 0.9 (0.8-1.8); Bilirubin, Total 0.2 mg/dL (0.1-1.0); Bun/Creatinine Ratio 37.9 (12.0-20.0); Calcium, Blood 8.1 mg/dL (8.5-10.1); Creatinine, Blood 0.55 mg/dL (0.40-1.00); Globulin, Blood 2.6 g/dL (2.2-4.0)
--- NOTE | 2024-11-20 04:56 | NUR ---
SHIFT SUMMARY PATIENT WAKES TO VERBAL STIMULI BUT DOES NOT STAY AWAKE FOR LONG. PATIENT WILL OPEN EYES BUT IS QUICKLY BACK TO SLEEP. BP STABLE. PATIENT WITH ESTABLISHED TRACH STOMA, ETCO2 MONITOR OVER STOMA. OTHERWISE ON RA WITH SPO2 >90%. PATIENT BREATHING SHALLOW DURING THE NIGHT. TELE READING SB 50s. RECTAL TEMP PROBE PLACED D/T LOW TEMPERATURE ON ADMISSION. LOWEST TEMP AT 96.5. UNABLE TO ASSESS IF PATIENT IS HAVING ANY PAIN OR CHEST PAIN. BLADDER SCANNED DURING THE NIGHT, PATIENT ABLE TO VOID WITH SIGNIFICANT QUEING. ATTENDS IN PLACE. NO OTHER SIGNIFICANT CHANGES DURING THE NIGHT, WILL REPORT TO DAY SHIFT RN.
[2024-11-20 05:16] LABS: Source, Urine Clean Catch
[2024-11-20 05:25] LABS: Appearance, Urine Clear (Clear); Bilirubin, Urine Neg (Neg); Blood, Urine 1+ (Neg); Color, Urine Yellow (P-Yellow); Glucose Qualitative, Urine Neg (Neg); Ketones, Urine Neg (Neg); Leukocyte Esterase, Urine 2+ (Neg); Nitrite, Urine Pos (Neg); Protein, Urine 1+ (Neg); Urobilinogen, Urine NORM (Normal)
[2024-11-20 05:32] LABS: Bacteria Many /hpf; Squamous Epithelial Cells Many /hpf (Few)
[2024-11-20 05:37] LABS: U Amphetamine Screen Not Detected; U Barbituate Screen Not Detected; U Benzodiazapine Screen Not Detected; U Buprenorphine Screen Not Detected; U Cannabinoids Screen Not Detected; U Cocaine Screen Not Detected; U Methadone Screen Not Detected; U Methamphetamine Screen Not Detected; U Opiates Screen Not Detected; U Oxycodone Screen Not Detected; U Phencyclidine Screen Not Detected
[2024-11-20 07:15] VITALS: BP 124/59
--- NOTE | 2024-11-20 10:21 | NUR ---
UPDATE TO POISON CONTROL: PATIENT UPDATE GIVEN, POISON CENTER , NO ACUTE CHANGES, VSS QT NOT PROLONGED AT TIME OF NOTE. POISON CONTROL SIGNED OFF AT THIS TIME NO FURTHER FOLLOW UP NEEDED UNLESS CONDITION CHANGES.
[2024-11-20] MEDS ORDERED: MIRALAX17 GM PO (10:55)
[2024-11-20] MEDS ORDERED: ASCO500 PO (10:57)
[2024-11-20] MEDS ORDERED: ZINC50 M3 PO (10:59)
[2024-11-20 16:20] VITALS: BP 131/79
--- NOTE | 2024-11-20 19:38 | NUR ---
SHIFT SUMMARY PATIENT A0X2 AT THE BEGINING OF SHIFT. NOW SHE IS A0X3 SHE IS UNSURE OF THE DATE. SHE IS ABLE TO MAKE HER NEEDS KNOWN. SHE DENIES CHEST PAIN AND SHORTNESS OF BREATH. SHE IS ABLE TO TOLERATE HER SOFT DIET. HER VITAL ARE STABLE. SHE HAD DISCHARGE ORDERS TO GO HOME TODAY BUT THE FACILITY SHE WAS GOING TO WAS NOT ABLE TO TAKE HER BACK ON THE WEEKENDS.
[2024-11-20 20:09] VITALS: BP 131/58
[2024-11-21 01:17] VITALS: BP 127/49
[2024-11-21 04:03] VITALS: BP 117/52
--- NOTE | 2024-11-21 06:23 | NUR ---
PT STABLE THROUGHOUT THE SHIFT. PT IS MORE ALERT AND ORIENTED, AOX2-3, PERSON, PLACE, EVENT, UNSURE OF DATE. PT VITALS WNL. PT INCONTINENT OF URINE WITH BRIEF CHANGES. NO STOOL NOTED. PT IS ABLE TO MAKE NEEDS KNOW AND USES CALL LIGHT APPROPRIATELY. PT DOES HAVE A VERY SOFT SPEAKING VOICE D/T TRACH STOMA BUT OTHERWISE IS ABLE TO COMMUNICATE APPROPRIATELY. PT REMAINED IN SINUS EVER THROUGHOUT THE SHIFT, QTC REMAINED BELOW PARAMETERS.
[2024-11-21 07:27] VITALS: BP 127/63; BP 27/63
[2024-11-21] MEDS ORDERED: Magnesium Hydroxide Conc 10 ML UDC PO PRN (07:40)
[2024-11-21] MEDS ORDERED: Acetaminophen 325 MG TABLET PO PRN (07:45)
[2024-11-21] MEDS ORDERED: HYDROcodone 5-APAP 325 TAB PO PRN (07:50)
[2024-11-21] MEDS ORDERED: ALPRAZolam 0.25 MG Tab PO PRN (07:50)
[2024-11-21] MEDS ORDERED: Loperamide HCl 2 MG Cap PO PRN (07:55)
[2024-11-21] MEDS ORDERED: Potassium Chloride 10 Meq Tablet SA PO SCH (08:00)
[2024-11-21] MEDS ORDERED: Levothyroxine Sodium 0.05 MG Tab PO SCH (08:00)
[2024-11-21] MEDS ORDERED: AmLODIPine Besylate 5 MG Tab PO SCH (09:00)
[2024-11-21] MEDS ORDERED: Clopidogrel Bisulfate 75 MG Tab PO SCH (09:00)
[2024-11-21] MEDS ORDERED: DULoxetine HCL 30 MG Cap DR PO SCH (09:00)
[2024-11-21] MEDS ORDERED: Divalproex Sodium 500 MG TABLET.DR PO SCH (09:00)
[2024-11-21] MEDS ORDERED: Folic Acid 1 MG TAB PO SCH (09:00)
[2024-11-21] MEDS ORDERED: Atorvastatin 40 MG Tab PO SCH (09:00)
[2024-11-21] MEDS ORDERED: BusPIRone HCl 10 MG Tab PO SCH (09:00)
[2024-11-21] MEDS ORDERED: Losartan Potassium 50 MG Tab PO SCH (09:00)
[2024-11-21] MEDS ORDERED: Thiamine HCl 100 MG Tab PO SCH (09:00)
[2024-11-21] MEDS ORDERED: Cholecalciferol 1000 Unit Tablet (=25MCG) PO SCH (09:00)
[2024-11-21] MEDS ORDERED: Aspirin 81 MG Chew PO SCH (09:00)
[2024-11-21] MEDS ORDERED: Furosemide 40 MG Tab PO SCH (09:00)
[2024-11-21] MEDS ORDERED: Zinc Sulfate 220 MG Cap (Provides 50MG) PO SCH (09:00)
[2024-11-21] MEDS ORDERED: Polyethylene Glycol 3350 17 gm PO SCH (09:00)
[2024-11-21] MEDS ORDERED: Ascorbic Acid 500 MG Tab PO SCH (09:00)
[2024-11-21] MEDS ORDERED: Cyanocobalamin 500 MCG Tab PO SCH (09:00)
--- NOTE | 2024-11-21 11:01 | NUR ---
DISCHARGE PATIENT AOX3 ABLE TO MAKE NEEDS KNOWN. DENIES CHEST PAIN AND DENIES SOB. SHE UNDERSTANDS ALL HER DISCHARGE INSTRUCTIONS. REPORT WAS CALLED TO THE NURSE AT [facility]' ALL QUESTIONS ANSWERED. SHE WAS PICKED UP BY WHEELCHAIR BY [facility] ON 2L NC CANNULA.
[2024-11-22] MEDS ORDERED: Pantoprazole Sodium 20 MG Tab PO SCH (06:00)
== END 2024-11-21 10:52 ==
LOC: ER 20:46 → PCU 20:47 → ERHOLD 20:47 → PCU 23:48
PROVIDERS: Student in an Organized Health Care Education/Training Program; ADMIT Internal Medicine
DX: T43.591A Poisoning by other antipsychotics and neuroleptics, accidental (unintentional), initial encounter (principal); T46.6X1A Poisoning by antihyperlipidemic and antiarteriosclerotic drugs, accidental (unintentional), initial encounter; T39.1X1A Poisoning by 4-Aminophenol derivatives, accidental (unintentional), initial encounter; G92.8 Other toxic encephalopathy; I25.10 Atherosclerotic heart disease of native coronary artery without angina pectoris; J44.9 Chronic obstructive pulmonary disease, unspecified; G40.909 Epilepsy, unspecified, not intractable, without status epilepticus; M79.7 Fibromyalgia; I10 Essential (primary) hypertension; K21.9 Gastro-esophageal reflux disease without esophagitis; E03.9 Hypothyroidism, unspecified; E11.9 Type 2 diabetes mellitus without complications; I69.351 Hemiplegia and hemiparesis following cerebral infarction affecting right dominant side; M19.90 Unspecified osteoarthritis, unspecified site; F17.210 Nicotine dependence, cigarettes, uncomplicated; Z66 Do not resuscitate; Z79.890 Hormone replacement therapy; Z79.82 Long term (current) use of aspirin; Z79.02 Long term (current) use of antithrombotics/antiplatelets; Z79.899 Other long term (current) drug therapy; Z88.2 Allergy status to sulfonamides; Z88.1 Allergy status to other antibiotic agents; Z88.8 Allergy status to other drugs, medicaments and biological substances; Z91.040 Latex allergy status; Z98.84 Bariatric surgery status
CPT/HCPCS: 36415; 70450; 71045; 80053; 81001; 82803; 82947; 83735; 83880; 84100; 85025; 87077; 87086; 87186; 93005; 93010; 94760; 94762; 96372; 96374; 99285-25; A9270; G0378; J1650; J3480; J7030; J7050

== ENCOUNTER → 2025-02-15 | Outpatient (CLI) | payer MEDICARE, OTHER ==
[~2025-02-15] MED LIST changes: +ASCO500 PO; +DULCOLAX400 MG/5 M PO; +MIRALAX17 GM PO; +PANT20 PO; +ZINC50 M3 PO
[2025-02-15 17:44] LABS: Source, Urine Clean Catch
[2025-02-15 18:51] LABS: Bilirubin, Urine Neg (Neg); Glucose Qualitative, Urine Neg (Neg); Ketones, Urine Neg (Neg); Leukocyte Esterase, Urine Neg (Neg); Protein, Urine Neg (Neg); Specific Gravity, Urine 1.015 (1.003-1.022); Urobilinogen, Urine NORM (Normal)
[2025-02-15 19:04] LABS: Color, Urine Pale Yellow (P-Yellow)
[2025-02-15 19:05] LABS: Red Blood Cells, Urine 0-2 /hpf (0-2); White Blood Cells, Urine 0-2 /hpf (0-5)
== END ==
LOC: LAB SHORT 17:41 → LAB 17:41
PROVIDERS: Nurse Practitioner Family
DX: N39.0 Urinary tract infection, site not specified (principal)
CPT/HCPCS: 81001

== ENCOUNTER → 2025-03-02 | Outpatient (CLI) | payer MEDICARE, OTHER ==
[2025-03-02 15:02] LABS: Source, Urine Clean Catch
[2025-03-02 16:55] LABS: Bilirubin, Urine Neg (Neg); Color, Urine Yellow (P-Yellow); Glucose Qualitative, Urine Neg (Neg); Ketones, Urine Neg (Neg); Leukocyte Esterase, Urine 2+ (Neg); Protein, Urine Neg (Neg); Specific Gravity, Urine 1.015 (1.003-1.022); Urobilinogen, Urine NORM (Normal)
== END ==
LOC: LAB SHORT 15:00 → LAB 15:00
PROVIDERS: Physician Assistant
DX: N39.0 Urinary tract infection, site not specified (principal)
CPT/HCPCS: 81001; 87077; 87086; 87186